=== PATIENT | female | born 1985 | race African-American/Black ===

== ENCOUNTER 2017-07-12 07:48 | Inpatient (IN) | payer BC ==
[2017-07-12] VITALS (11 sets, daily range): BP systolic 114–124; BP diastolic 65–71; PULSE 85–104; RESP 18–25; TEMP 98.1–100; O2SAT 96–100
[~2017-07-12] VITALS: Ht 167.6 cm; Wt 91.4 kg
[~2017-07-12 07:48] MED LIST: TRINTAB7 PO
[2017-07-12] MEDS ORDERED: PROCHLORPERAZINE 25 MG SUPP RECTAL PRN (08:30)
[2017-07-12] MEDS ORDERED: ZOLPIDEM TARTRATE 5 MG TAB PO PRN (08:30)
[2017-07-12] MEDS ORDERED: SODIUM CHLORIDE 0.9% FLUSH 10 ML FLUSH IV FLUSH PRN ×2 (08:30)
[2017-07-12] MEDS ORDERED: MAGNESIUM HYDROXIDE SUSP 30 ML CUP PO PRN (08:30)
[2017-07-12] MEDS ORDERED: LACTULOSE SYRUP 20 GM/30 ML CUP PO PRN (08:30)
[2017-07-12] MEDS ORDERED: BISACODYL 10 MG SUPP RECTAL PRN (08:30)
[2017-07-12] MEDS ORDERED: ONDANSETRON HCL 4 MG/2 ML VIAL IVP PRN (08:30)
[2017-07-12] MEDS ORDERED: ACETAMINOPHEN 325 MG TAB PO PRN ×2 (08:30)
[2017-07-12] MEDS ORDERED: NALOXONE HCL 0.4 MG/ML AMP IV PUSH PRN (08:30)
[2017-07-12] MEDS ORDERED: SENNOSIDES 8.6 MG TAB PO PRN (08:30)
[2017-07-12] MEDS ORDERED: HEPARIN-D5W 25,000 U/250 ML 250 ML IV PRN ×2 (08:30→11:00)
[2017-07-12] MEDS ORDERED: MORPHINE SULFATE 4 MG/ML INJ IV PUSH PRN ×3 (08:30)
[2017-07-12] MEDS: SODIUM CHLORIDE 0.9% FLUSH 10 ML FLUSH IV FLUSH SCH ×2 (09:00→21:00)
[2017-07-12] MEDS ORDERED: SODIUM CHLORIDE 0.9% FLUSH 10 ML FLUSH IV FLUSH SCH (09:00)
[2017-07-12] MEDS: DOCUSATE SODIUM 50 MG/SENNA 8.6 MG TAB PO SCH ×2 (09:00→21:00)
[2017-07-12] MEDS: HEPARIN-D5W 25,000 U/250 ML 250 ML IV PRN ×2 (11:00→21:33)
[2017-07-12] MEDS: SODIUM CHLOR 0.9% 1000 ML INJ 1,000 ML IV SCH ×2 (11:02→21:29)
[2017-07-12] MEDS: ACETAMINOPHEN/HYDROcodone 325 MG/5 MG TAB PO PRN ×3 (11:21→21:34)
--- NOTE | 2017-07-12 11:43 | RADRPT ---
EXAM DATE/TIME: 07/12/2017 10:57 [facility] COMPARISON: No previous studies available for comparison. INDICATIONS : Bilateral pulmonary embolism. MEDICAL HISTORY : Bilateral pulmonary embolism. SURGICAL HISTORY : section. ENCOUNTER: Initial ACUITY: 1 day PAIN SCORE: 0/10 LOCATION: Bilateral leg. TECHNIQUE: Venous ultrasound of the left and right leg was performed from the inguinal ligament to the proximal calf. Real-time, color Doppler and spectral tracing, compression and augmentation techniques were us ed. FINDINGS: RIGHT LEG: There is normal compressibility of the deep venous system from the inguinal region to the proximal ca lf. No echogenic clot is seen in the lumen of the common femoral, femoral, popliteal, and posterior tibial veins. There is a normal response of the venous system to proximal and distal augmentation an d respiration. LEFT LEG: Small focus of echogenic nonocclusive thrombus involving the popliteal vein. There is normal compress ibility of the deep venous system from the inguinal region to the proximal calf. No echogenic clot i s seen in the lumen of the common femoral, femoral, and posterior tibial veins. There is a normal re sponse of the venous system to proximal and distal augmentation and respiration. CONCLUSION: 1. Small volume thrombus involving the left popliteal vein which is nonocclusive. 2. No DVT involving the right leg. Torey Ortiz Jr., MD on July 12, 2017 at 11:38 Board Certified Radiologist. This report was verified electronically.
[2017-07-12 12:58] LABS: AUTOMATED NEUTROPHIL # 10.8 TH/MM3 (1.8-7.7); BASOPHIL % 0.3 % (0.0-2.0); EOSINOPHIL % 0.3 % (0.0-4.0); HEMATOCRIT 37.6 % (35.0-46.0); HEMO FLAGS DIFF FINAL; LYMPH % 12.3 % (9.0-44.0); LYMPHOCYTE # 1.6 TH/MM3 (1.0-4.8); MEAN CELL VOLUME 83.2 FL (80.0-100.0); MEAN CORPUSCULAR HEMOGLOBIN 27.4 PG (27.0-34.0); NEUT % 82.1 % (16.0-70.0); PLATELET COUNT 237 TH/MM3 (150-450); RED BLOOD COUNT 4.53 MIL/MM3 (4.00-5.30); RED CELL DISTRIBUTION WIDTH 13.4 % (11.6-17.2); WHITE BLOOD COUNT 13.2 TH/MM3 (4.0-11.0)
--- NOTE | 2017-07-12 13:16 | HHI.HP ---
[facility] Service [place] [facility] Primary Care Physician No Primary Care Physician Admission Diagnosis Diagnoses: (1) Pulmonary emboli Diagnosis: Principal (2) Dyspnea Diagnosis: Principal (3) SOB (shortness of breath) Diagnosis: Secondary (4) Chest pain Diagnosis: Principal Chief Complaint: CHEST PAIN Travel History International Travel<30 Days: No Contact w/Intl Traveler <30 Da: No Traveled to Known Affected Are: No History of Present Illness PATIENT IS A 31 YEAR OLD FEMALE WHO complains of right-sided chest pain and shortness of breath that began yesterday morning. She rates the pain 9 out of 10. Pain increases with inhaling, moving and walking. She describes the pain as a "pain". This is the first time she's had episode like this. She does not smoke. She denies any family history heart disease. She denies any personal history of DVT or PE. Patient is currently on oral contraceptive pills. Review of Systems Constitutional: COMPLAINS OF: Fatigue, DENIES: Diaphoretic episodes, Fever, Weight gain, Weight loss, Dizziness, Change in appetite Endocrine: DENIES: Abnorml menstrual pattern, Heat/cold intolerance Eyes: DENIES: Blurred vision, Diplopia, Eye inflammation Ears, nose, mouth, throat: DENIES: Tinnitus, Hearing loss, Vertigo, Nasal discharge Respiratory: COMPLAINS OF: Cough, Shortness of breath, DENIES: Apneas, Snoring , Wheezing, Hemoptysis Cardiovascular: COMPLAINS OF: Chest pain, DENIES: Palpitations, Syncope, Dyspnea on Exertion, PND Gastrointestinal: DENIES: Abdominal pain, Black stools, Bloody stools, Constipation Genitourinary: DENIES: Abnormal vaginal bleeding, Dysmenorrhea, Urgency, Hematuria Musculoskeletal: DENIES: Joint pain, Muscle aches, Stiffness Integumentary: DENIES: Abnormal pigmentation, Pruritus Hematologic/lymphatic: DENIES: Bruising, Lymphadenopathy Immunologic/allergic: DENIES: Eczema, Urticaria Neurologic: DENIES: Abnormal gait, Headache, Localized weakness, Paresthesias, Seizures, Speech Problems Psychiatric: DENIES: Anxiety, Confusion, Mood changes, Depression, Hallucinations Past Family Social History Past Medical History Past Surgical History Reported Medications Reported Meds & Active Scripts Active Reported Trinessa (Norgestimate-Ethinyl Estradiol) 0.18/0.215/0.25 mg-35 Mcg Tab 1 Tab PO DAILY Allergies: Coded Allergies: ibuprofen (Verified Allergy, Severe, Swelling, 07/12/17) Active Ordered Medications Current Medications Sodium Chloride 1,000 ml @ 75 mls/hr [id number] IV Last administered on 11:02; Start 07/12/17 at 08:17 Sodium Chloride (NS Flush) 2 ml UNSCH PRN IV FLUSH FLUSH AFTER USING IV ACCESS ; Start 07/12/17 at 08:30; Stop 07/12/17 at 10:07; Status DC Sodium Chloride (NS Flush) 2 ml BID IV FLUSH ; Start 07/12/17 at 09:00; Stop 07/12/17 at 10:07; Status DC Acetaminophen/ Hydrocodone Bitart ([place] 5-325 Mg) 1 tab Q4H PRN PO PAIN SCALE 1 TO 5; Start 07/12/17 at 08:30 Acetaminophen/ Hydrocodone Bitart ([place] 5-325 Mg) 2 tab Q4H PRN PO PAIN SCALE 6 TO 10 Last administered on 07/12/17 11:21; Start 07/12/17 at 08:30 Morphine Sulfate (Morphine Inj) 2 mg Q4H PRN IV PUSH BREAKTHROUGH PAIN; Start 07/12/17 at 08:30 Heparin Sodium (Porcine) (Heparin Inj) 5,000 units UNSCH PRN IV PUSH APTT LESS THAN 25; Start 07/12/17 at 14:30 Heparin Sodium (Porcine) (Heparin Inj) 2,500 units UNSCH PRN IV PUSH APTT 25 TO 39; Start 07/12/17 at 14:30 Heparin Sodium/ Dextrose 250 ml @ 0 mls/hr TITRATE PRN IV Coagulation Management; Start 07/12/17 at 08:30; Status UNV Sodium Chloride (NS Flush) 2 ml UNSCH PRN IV FLUSH FLUSH AFTER USING IV ACCESS ; Start 07/12/17 at 08:30 Sodium Chloride (NS Flush) 2 ml BID IV FLUSH Last administered on 07/12/17 09 :00; Start 07/12/17 at 09:00 Acetaminophen (Tylenol) 650 mg Q4H PRN PO TEMP > 100.4; Start 07/12/17 at 08: 30 Ondansetron HCl (Zofran Inj) 4 mg Q6H PRN IVP NAUSEA OR VOMITING; Start at 08:30 Prochlorperazine (Compazine Supp) 25 mg Q12H PRN RECTAL NAUSEA OR VOMITING; Start 07/12/17 at 08:30 Zolpidem Tartrate (Ambien) 5 mg HS PRN PO INSOMNIA; Start 07/12/17 at 08:30 Acetaminophen (Tylenol) 650 mg Q6H PRN PO PAIN SCALE 1 TO 2; Start 07/12/17 at 08:30; Stop 07/12/17 at 10:04; Status DC Morphine Sulfate (Morphine Inj) 2 mg Q3H PRN IV PUSH Pain 3-5; if unable to take PO; Start 07/12/17 at 08:30 Morphine Sulfate (Morphine Inj) 4 mg Q3H PRN IV PUSH Pain 6-10;if unable to take PO; Start 07/12/17 at 08:30 Naloxone HCl (Narcan Inj) 0.4 mg UNSCH PRN IV PUSH SEE LABEL COMMENTS; Start 07/12/17 at 08:30 Senna/Docusate Sodium (Megan-Colace) 1 tab BID PO ; Start 07/12/17 at 09:00 Magnesium Hydroxide (Milk Of Magnesia Liq) 30 ml Q12H PRN PO Mild constipation ; Start 07/12/17 at 08:30 Sennosides (Senokot) 17.2 mg Q12H PRN PO Moderate constipation; Start at 08:30 Bisacodyl (Dulcolax Supp) 10 mg DAILY PRN RECTAL SEVERE CONSITIPATION; Start 07/12/17 at 08:30 Lactulose (Lactulose Liq) 30 ml DAILY PRN PO SEVERE CONSITIPATION; Start 07/12 at 08:30 Heparin Sodium/ Dextrose 250 ml @ 16.38 mls/ hr UNSCH PRN IV COAGULATION MANAGEMENT; Start 07/12/17 at 11:00; Stop 07/12/17 at 11:00; Status DC Heparin Sodium/ Dextrose 250 ml @ 16.38 mls/ hr TITRATE PRN IV COAGULATION MANAGEMENT Last administered on 07/12/17t 11:00; Start 07/12/17 at 11:00 Family History DENIES MOTHER AND FATHER UNKNOWN Social History DENIES TOBACCO DENIES ILLICITS OCCASIONAL ALCOHOLIC BEVERAGE Physical Exam Vital Signs Vital Signs Date Time Temp Pulse Resp B/P (MAP) Pulse Ox O2 Delivery O2 Flow Rate FiO2 07/12/17 06:34 72 16 117/62 (80) 98 Room Air 07/12/17 04:57 2.00 07/12/17 04:43 98.1 Physical Exam GENERAL: This is a well-nourished, well-developed patient, in MILD distress. SOME CHEST PAIN SKIN: No rashes, ecchymoses or lesions. Cool and dry. HEAD: Atraumatic. Normocephalic. No temporal or scalp tenderness. EYES: Pupils equal round and reactive. Extraocular motions intact. No scleral icterus. No injection or drainage. ENT: Nose without bleeding, purulent drainage or septal hematoma. Throat without erythema, tonsillar hypertrophy or exudate. Uvula midline. Airway patent. NECK: Trachea midline. No JVD or lymphadenopathy. Supple, nontender, no meningeal signs. CARDIOVASCULAR: Regular rate and rhythm without murmurs, gallops, or rubs. S1, S2 NO S3 OR S4 RESPIRATORY: Clear to auscultation. Breath sounds equal bilaterally. No wheezes , rales, or rhonchi. GASTROINTESTINAL: Abdomen soft, non-tender, nondistended. No hepato-splenomegaly , or palpable masses. No guarding. MUSCULOSKELETAL: Extremities without clubbing, cyanosis, or edema. No joint tenderness, effusion, or edema noted. No calf tenderness. Negative Homans sign bilaterally. NEUROLOGICAL: Awake and alert. Cranial nerves II through XII intact. Motor and sensory grossly within normal limits. Five out of 5 muscle strength in all muscle groups. Normal speech. INSIGHT AND JUDGEMENT ARE GOOD MOOD AND BEHAVIOR ARE APPROPRIATE Laboratory Labs Laboratory Tests Test 07/12/17 04:45 White Blood Count 15.2 TH/MM3 Red Blood Count 4.37 MIL/MM3 Hemoglobin 12.3 GM/DL Hematocrit 36.0 % Mean Corpuscular Volume 82.4 FL Mean Corpuscular Hemoglobin 28.1 PG Mean Corpuscular Hemoglobin Concent 34.2 % Red Cell Distribution Width 12.9 % Platelet Count 227 TH/MM3 Mean Platelet Volume 10.3 FL Immature Granulocyte % (Auto) 0.3 % Neutrophils (%) (Auto) 73.0 % Lymphocytes (%) (Auto) 19.3 % Monocytes (%) (Auto) 5.5 % Eosinophils (%) (Auto) 1.7 % Basophils (%) (Auto) 0.2 % Immature Granulocyte # (Auto) 0.1 TH/MM3 Neutrophils # (Auto) 11.1 TH/MM3 Lymphocytes # (Auto) 2.9 TH/MM3 Monocytes # (Auto) 0.8 TH/MM3 Eosinophils # (Auto) 0.3 TH/MM3 Basophils # (Auto) 0.0 TH/MM3 CBC Comment DIFF FINAL Differential Comment Prothrombin Time 10.5 SEC Prothromb Time International Ratio 1.0 RATIO Activated Partial Thromboplast Time 28.8 SEC D-Dimer Quantitative (PE/DVT) 1.82 MG/L FEU Blood Urea Nitrogen 6 MG/DL Creatinine 0.90 MG/DL Random Glucose 119 MG/DL Calcium Level 8.5 MG/DL Magnesium Level 2.1 MG/DL Sodium Level 141 MEQ/L Potassium Level 3.7 MEQ/L Chloride Level 108 MEQ/L Carbon Dioxide Level 25.0 MEQ/L Anion Gap 8 MEQ/L Estimat Glomerular Filtration Rate 88 ML/MIN Total Creatine Kinase 93 U/L Troponin I LESS THAN 0.02 NG/ML Human Chorionic Gonadotropin, Quant LESS THAN 1 MIU/ML Imaging Last Impressions Lower Extremity Ultrasound 07/12/17 0000 Signed Impressions: Service Date/Time: Wednesday, July 12, 2017 10:57 - CONCLUSION: 1. Small volume thrombus involving the left popliteal vein which is nonocclusive. 2. No DVT involving the right leg. Torey Ortiz Jr., MD ----- CT Pulmonary Angiogram Signed EXAM DATE/TIME: 07/12/2017 05:52 [facility] COMPARISON: No previous studies available for comparison. INDICATIONS : Right sided chest pain; evaluate for pulmonary embolism. IV CONTRAST: 60 cc Omnipaque 350 (iohexol) IV RADIATION DOSE: 14.76 CTDIvol (mGy) MEDICAL HISTORY : None SURGICAL HISTORY : None. ENCOUNTER: Initial ACUITY: 1 day PAIN SCALE: 9/10 LOCATION: Right chest TECHNIQUE: Volumetric scanning of the chest was performed using a pulmonary embolism protocol MIP images were reconstructed. Using automated exposure control and adjustment of the mA and/or kV according to patient size, radiation dose was kept as low as reasonably achievable to obtain optimal diagnostic quality images. DICOM format image data is available electronically for review and comparison. Follow-up recommendations for detected pulmonary nodules are based at a minimum on nodule size and patient risk factors according to Fleischner Society Guidelines. FINDINGS: PULMONARY ARTERIES: There is a large low density thrombus in the right intralobar pulmonary artery supplying a significant amount of the right lower lobe. There is a small filling defect in the left lower lobe pulmonary artery. LUNGS: There is a large infiltrate in the right lower lobe. There is no pneumothorax . No concerning pulmonary nodule is visualized. PLEURAE: There is no pleural thickening or pleural effusion. MEDIASTINUM: There is good visualization of the great vessels of the middle mediastinum. No evidence of mediastinal or hilar adenopathy/mass. MUSCULOSKELETAL: Within normal limits for patient age. MISCELLANEOUS: The visualized upper abdominal organs demonstrate no acute abnormality. CONCLUSION: Large embolus in the right lower lobe and intralobar pulmonary artery. Significant infiltrate in the right lower lobe. Tiny embolus in the left lower lobe pulmonary artery Chest, Single AP Signed EXAM DATE/TIME: 07/12/2017 05:25 [facility] COMPARISON: No previous studies available for comparison. INDICATIONS : Right sided chest pain with shortness of breath. MEDICAL HISTORY : None. SURGICAL HISTORY : None. ENCOUNTER: Initial ACUITY: 1 day PAIN SCORE: 9/10 LOCATION: Right chest FINDINGS: A single view of the chest demonstrates the lungs to be symmetrically aerated without evidence of mass, ior effusion. There is a small infiltrate in the lateral aspect of the right lower or middle lobes The cardiomediastinal contours are unremarkable. Osseous structures are intact. CONCLUSION: Airspace disease the right lower lobe laterally could be small area of pneumonia. Caprini VTE Risk Assessment Caprini VTE Risk Assessment: Mod/High Risk (score >= 2) Caprini Risk Assessment Model Point Value = 1 Point Value = 2 Point Value = 3 Point Value = 5 Age 41-60 Minor surgery BMI > 25 kg/m2 Swollen legs Varicose veins or History of unexplained or recurrent spontaneous Oral contraceptives or hormone replacement Sepsis (< 1 month) Serious lung disease, including pneumonia (< 1 month) Abnormal pulmonary function Acute myocardial infarction Congestive heart failure (< 1 month) History of inflammatory bowel disease Medical patient at bed rest Age 61-74 Arthroscopic surgery Major open surgery (> 45 min) Laparoscopic surgery (> 45 min) Malignancy Confined to bed (> 72 hours) Immobilizing plaster cast Central venous access Age >= 75 History of VTE Family history of VTE Factor V Leiden Prothrombin [id number] Lupus anticoagulant Anticardiolipin antibodies Elevated serum homocysteine Heparin-induced thrombocytopenia Other congenital or acquired thrombophilia Stroke (< 1 month) Elective arthroplasty Hip, pelvis, or leg fracture Acute spinal cord injury (< 1 month) Prophylaxis Regimen Total Risk Factor Score Risk Level Prophylaxis Regimen 0-1 Low Early ambulation 2 Moderate Order ONE of the following: *Sequential Compression Device (SCD) *Heparin 5000 units SQ BID 3-4 Higher Order ONE of the following medications: *Heparin 5000 units SQ TID *Enoxaparin/Lovenox 40 mg SQ daily (WT < 150 kg, CrCl > 30 mL/min) *Enoxaparin/Lovenox 30 mg SQ daily (WT < 150 kg, CrCl > 10-29 mL/min) *Enoxaparin/Lovenox 30 mg SQ BID (WT < 150 kg, CrCl > 30 mL/min) AND/OR *Sequential Compression Device (SCD) 5 or more Highest Order ONE of the following medications: *Heparin 5000 units SQ TID (Preferred with Epidurals) *Enoxaparin/Lovenox 40 mg SQ daily (WT < 150 kg, CrCl > 30 mL/min) *Enoxaparin/Lovenox 30 mg SQ daily (WT < 150 kg, CrCl > 10-29 mL/min) *Enoxaparin/Lovenox 30 mg SQ BID (WT < 150 kg, CrCl > 30 mL/min) AND *Sequential Compression Device (SCD) Assessment and Plan Problem List: (1) Dyspnea ICD Code: R06.00 - Dyspnea, unspecified (2) SOB (shortness of breath) ICD Code: R06.02 - Shortness of breath (3) Chest pain ICD Code: R07.9 - Chest pain, unspecified (4) Pulmonary emboli ICD Code: I26.99 - Other pulmonary embolism without acute cor pulmonale Assessment and Plan MULTIPLE PULMONARY EMBOLI BL- CONTINUE ON HEPARIN DRIP HOPEFULLY TRANSITION TO XARELTO OR ELIQUIS TOMORROW IF ECHO IS STABLE AND CHEST PAIN DECREASES HAS DVT IN LEFT LE-MAY BE SOURCE OF PE RULE OUT HYPERCOAGULABLE STATE LABS DRAWN- CONSULT HEMATOLOGY CHRONIC CONTROL PILL- WILL STOP PAIN CONTROL NEEDED FOR PE AND CHEST PAIN SOB- CONTINUE HEPARIN DRIP CHEST PAIN, ECHO AND TREND TROPONINS GI PROPHYLAXIS WITH H2 LINDY DW RN AND PT Code Status FULL CODE Discussed Condition With ER AND RN AND PT AND Physician Certification 2 Midnight Certification Type: Admission for Inpatient Services Order for Inpatient Services The services are ordered in accordance with Medicare regulations or non- Medicare payer requirements, as applicable. In the case of services not specified as inpatient-only, they are appropriately provided as inpatient services in accordance with the 2-midnight benchmark. Estimated LOS (days): 3 3 days is the estimated time the patient will need to remain in the hospital, assuming treatment plan goals are met and no additional complications. Post-Hospital Plan: Home Gm Monzon DO Jul 12, 2017 13:16
[2017-07-12 13:19] LABS: APTT (PATIENT) 58.7 SEC (24.3-30.1); PROTHROMBIN TIME - PATIENT 11.4 SEC (9.8-11.6)
[2017-07-12 13:27] LABS: CREATINE KINASE 75 U/L (26-192)
[2017-07-12] MEDS ORDERED: CHLORHEXIDINE GLUCONATE 2 % 1 PACK (2 CLOTHS)(extra cloths) TOPICAL PRN (14:15)
[2017-07-12] MEDS ORDERED: HEPARIN SODIUM - IV 10,000 UNITS/10 ML VIAL IV PUSH PRN (14:30)
[2017-07-12] MEDS ORDERED: HEPARIN - 10,000 UNITS/ML IV ADDITIVE IV PUSH PRN (14:30)
[2017-07-12 17:08] LABS: APTT (PATIENT) 51.3 SEC (24.3-30.1)
--- NOTE | 2017-07-12 18:39 | MB ---
cc: JOHN RANGEL M.D. DATE OF CONSULTATION 07/12/[address] Monzon REASON FOR CONSULTATION Hematology consulted to render opinion regarding a patient with newly diagnosed acute pulmonary embolism. HISTORY OF THE PRESENT ILLNESS The patient is a very pleasant 31-year-old female with no significant past medical history, woke up this morning with acute right chest pain that describes as very sharp pain. She also has shortness of breath. She thought the pain was worse with deep breathing and movement. She started oral contraceptive pills about six months ago. She has two aunts with history of blood clots. One aunt had a blood clot after childbirth and another one had a blood clot after a long trip. She denies any constitutional symptoms. She has no cough. Denies any nausea, vomiting, diarrhea or abdominal pain, any dysuria, hematuria. She has been active. Denies any trauma to the lower extremities. PAST MEDICAL HISTORY No hypertension, coronary artery disease or diabetes. PAST SURGICAL HISTORY section times one. FAMILY HISTORY Two maternal aunts had blood clots as above. She had a brother and three children all healthy. SOCIAL HISTORY Denies tobacco. She drinks occasionally. ALLERGIES IBUPROFEN. MEDICATIONS Oral contraceptive pills. REVIEW OF SYSTEMS CONSTITUTIONAL: As above. EYES: Negative. EAR, NOSE, AND THROAT: Negative. CARDIOVASCULAR: As above. RESPIRATORY: As above. GASTROINTESTINAL: Negative. GENITOURINARY: Negative. MUSCULOSKELETAL: Negative. HEMATOLOGIC: As above. ENDOCRINE: Negative. DERMATOLOGIC: Negative. PSYCHIATRIC: Negative. NEUROLOGICAL: Negative. PHYSICAL EXAMINATION VITAL SIGNS: Temperature 98.3, blood pressure 114/65, O2 saturation 97% on room air. GENERAL: She is alert and oriented times three, in no acute distress. She is a little overweight. HEENT: Atraumatic, normocephalic. Pupils equal, round and reactive to light. Extraocular muscles intact. No scleral icterus. Oropharynx dry mucosa, no lesion, no thrush, no mucositis. NECK: No thyromegaly, no palpable mass. LYMPHATICS: No palpable cervical, clavicular, axillary or inguinal lymph nodes. CARDIOVASCULAR: Regular S1, S2. No murmur. LUNGS: Clear to auscultation bilaterally. No wheezing or rhonchi. ABDOMEN: Soft, nontender. I could not palpate liver or spleen. EXTREMITIES: No clubbing, cyanosis or edema. BACK: No paravertebral tenderness. SKIN: No rash or petechiae. NEUROLOGIC: Nonfocal. LABORATORY DATA Reviewed. ASSESSMENT Acute left lower extremity deep venous thrombosis with pulmonary embolism. She likely has a hypercoagulable state exacerbated with oral contraceptive pills. She presented with chest pain and CT angiogram showed a large pulmonary embolism in the right lower lobe, intralobar pulmonary artery with small pulmonary embolism in the left lower lobe pulmonary artery and also infiltrate in the right lower lobe which is likely due to the pulmonary embolism. Ultrasound showed a small nonocclusive clot in the left popliteal vein. She had two maternal aunts with history of blood clots, one triggered by a and one had a blood clot after a long flight. The patient started oral contraceptive pills six months ago. She is hemodynamically stable. She has good O2 saturation on room air. However, she is still a little tachycardic. I will start her on oxygen supplement. The hypercoagulable panel has been ordered and the results may take two weeks to complete. She is currently on heparin and tolerating it well. I had an extensive discussion with the patient and her family. I told her if her hypercoagulable panel is unremarkable, I will recommend that she stay on anticoagulation for six months. However, if she has significant abnormality in the hypercoagulable panel, then she may need retirement anticoagulation. Once she is stable she could be bridged to one of the new oral anticoagulation like Eliquis or Pradaxa. They had many questions today which were answered. RECOMMENDATIONS 1. Continue heparin and can bridge to an oral anticoagulant tomorrow if she is stable. 2. Hypercoagulable panel is pending. 3. Duration of anticoagulation will depend on the results of hypercoagulable workup. Thank you Dr. Monzon for asking me to see this patient. MD BOWEN Resendiz/FAREED /6:04 PM /6:13 PM ASIYA
[2017-07-13] VITALS (12 sets, daily range): BP systolic 116–127; BP diastolic 63–75; PULSE 80–110; RESP 18–25; TEMP 98.7–100.1; O2SAT 94–99
[2017-07-13] MEDS: ACETAMINOPHEN/HYDROcodone 325 MG/5 MG TAB PO PRN ×3 (01:18→17:12)
[2017-07-13 07:15] LABS: APTT (PATIENT) 51.4 SEC (24.3-30.1)
[2017-07-13 07:22] LABS: HEMATOCRIT 35.4 % (35.0-46.0); HEMO FLAGS DIFF FINAL; LYMPH % 13.5 % (9.0-44.0); MEAN CORPUSCULAR HEMOGLOBIN 27.8 PG (27.0-34.0); MEAN CORPUSCULAR HGB CONC 33.1 % (32.0-36.0); NEUT % 76.4 % (16.0-70.0); PLATELET COUNT 216 TH/MM3 (150-450); RED BLOOD COUNT 4.21 MIL/MM3 (4.00-5.30); RED CELL DISTRIBUTION WIDTH 13.6 % (11.6-17.2); WHITE BLOOD COUNT 13.6 TH/MM3 (4.0-11.0)
[2017-07-13 07:23] LABS: AUTOMATED NEUTROPHIL # 10.4 TH/MM3 (1.8-7.7); BASOPHIL % 0.2 % (0.0-2.0); EOSINOPHIL # 0.1 TH/MM3 (0-0.4); EOSINOPHIL % 0.6 % (0.0-4.0); LYMPHOCYTE # 1.8 TH/MM3 (1.0-4.8); MONO % 9.3 % (0.0-8.0)
[2017-07-13 07:30] LABS: ANION GAP 6 MEQ/L (5-15); AST (GOT) 5 U/L (15-37); BICARBONATE 27.6 MEQ/L (21.0-32.0); BLOOD UREA NITROGEN 6 MG/DL (7-18); CHLORIDE 105 MEQ/L (98-107); GLOMERULAR FILTRATION RATE 94 ML/MIN (>89); MAGNESIUM 2.2 MG/DL (1.5-2.5); POTASSIUM 3.7 MEQ/L (3.5-5.1); SODIUM (NA) 139 MEQ/L (136-145)
[2017-07-13 07:40] LABS: ALKALINE PHOSPHATASE 112 U/L (45-117); ALT (GPT) 13 U/L (10-53); FREE T4 1.63 NG/DL (0.76-1.46); TOTAL BILIRUBIN ADULT 0.5 MG/DL (0.2-1.0)
[2017-07-13 07:43] LABS: CREATINE KINASE 55 U/L (26-192)
--- NOTE | 2017-07-13 08:16 | PD.ONC.PN ---
Subjective Subjective Remarks CP slightly better. SOB improved. No bleeding. Objective Data Date Time Temp Pulse Resp B/P (MAP) Pulse Ox O2 Delivery O2 Flow Rate FiO2 07/13/17 04:00 80 07/13/17 04:00 99.2 80 18 122/68 (86) 99 07/13/17 02:00 81 07/13/17 00:00 84 07/13/17 00:00 99.7 84 18 122/68 (86) 99 07/12/17 22:00 96 07/12/17 20:00 94 07/12/17 20:00 100.0 85 18 119/69 (86) 98 07/12/17 19:04 99 Nasal Cannula 2.00 07/12/17 16:24 97 21 07/12/17 16:00 98.3 95 25 114/65 (81) 96 07/12/17 15:00 94 07/12/17 14:00 100 07/12/17 13:00 104 07/12/17 12:00 91 07/12/17 12:00 98.1 91 23 118/69 (85) 100 07/12/17 11:00 103 07/12/17 10:00 100 07/12/17 10:00 98.1 100 21 124/71 (88) 100 07/13/17 07/13/17 07/13/17 07:00 15:00 23:00 Intake Total 480 ml Output Total 1100 ml Balance -620 ml Result Diagram: 07/13/17 0625 07/13/17 0625 Laboratory Results Laboratory Tests Test 07/12/17 11:00 07/12/17 12:00 07/12/17 12:30 07/12/17 16:13 Nasal Screen MRSA (PCR) MRSA NOT DETECTED White Blood Count 13.2 TH/MM3 Red Blood Count 4.53 MIL/MM3 Hemoglobin 12.4 GM/DL Hematocrit 37.6 % Mean Corpuscular Volume 83.2 FL Mean Corpuscular Hemoglobin 27.4 PG Mean Corpuscular Hemoglobin Concent 33.0 % Red Cell Distribution Width 13.4 % Platelet Count 237 TH/MM3 Mean Platelet Volume 8.7 FL Neutrophils (%) (Auto) 82.1 % Lymphocytes (%) (Auto) 12.3 % Monocytes (%) (Auto) 5.0 % Eosinophils (%) (Auto) 0.3 % Basophils (%) (Auto) 0.3 % Neutrophils # (Auto) 10.8 TH/MM3 Lymphocytes # (Auto) 1.6 TH/MM3 Monocytes # (Auto) 0.7 TH/MM3 Eosinophils # (Auto) 0.0 TH/MM3 Basophils # (Auto) 0.0 TH/MM3 CBC Comment DIFF FINAL Differential Comment Prothrombin Time 11.4 SEC Prothromb Time International Ratio 1.0 RATIO Activated Partial Thromboplast Time 58.7 SEC 51.3 SEC Total Creatine Kinase 75 U/L Troponin I LESS THAN 0.02 NG/ML Test 07/13/17 06:25 White Blood Count 13.6 TH/MM3 Red Blood Count 4.21 MIL/MM3 Hemoglobin 11.7 GM/DL Hematocrit 35.4 % Mean Corpuscular Volume 84.0 FL Mean Corpuscular Hemoglobin 27.8 PG Mean Corpuscular Hemoglobin Concent 33.1 % Red Cell Distribution Width 13.6 % Platelet Count 216 TH/MM3 Mean Platelet Volume 8.7 FL Neutrophils (%) (Auto) 76.4 % Lymphocytes (%) (Auto) 13.5 % Monocytes (%) (Auto) 9.3 % Eosinophils (%) (Auto) 0.6 % Basophils (%) (Auto) 0.2 % Neutrophils # (Auto) 10.4 TH/MM3 Lymphocytes # (Auto) 1.8 TH/MM3 Monocytes # (Auto) 1.3 TH/MM3 Eosinophils # (Auto) 0.1 TH/MM3 Basophils # (Auto) 0.0 TH/MM3 CBC Comment DIFF FINAL Differential Comment Activated Partial Thromboplast Time 51.4 SEC Blood Urea Nitrogen 6 MG/DL Creatinine 0.85 MG/DL Random Glucose 94 MG/DL Total Protein 7.8 GM/DL Albumin 2.7 GM/DL Calcium Level 8.4 MG/DL Phosphorus Level 2.4 MG/DL Magnesium Level 2.2 MG/DL Alkaline Phosphatase 112 U/L Aspartate Amino Transf (AST/SGOT) 5 U/L Alanine Aminotransferase (ALT/SGPT) 13 U/L Total Bilirubin 0.5 MG/DL Sodium Level 139 MEQ/L Potassium Level 3.7 MEQ/L Chloride Level 105 MEQ/L Carbon Dioxide Level 27.6 MEQ/L Anion Gap 6 MEQ/L Estimat Glomerular Filtration Rate 94 ML/MIN Total Creatine Kinase 55 U/L Troponin I LESS THAN 0.02 NG/ML Free Thyroxine 1.63 NG/DL Thyroid Stimulating Hormone 3rd Gen 1.440 uIU/ML Administered Medications Medications (Trade) Dose Ordered Sig/Eric Route PRN Reason Start Time Stop Time Status Last Admin Dose Admin Sodium Chloride 1,000 ml @ 75 mls/hr [id number] IV 07/12/17 08:17 07/12/17 21:29 Acetaminophen/ Hydrocodone Bitart ([place] 5-325 Mg) 1 tab Q4H PRN PO PAIN SCALE 1 TO 5 07/12/17 08:30 07/12/17 16:57 Acetaminophen/ Hydrocodone Bitart ([place] 5-325 Mg) 2 tab Q4H PRN PO PAIN SCALE 6 TO 10 07/12/17 08:30 07/13/17 01:18 Sodium Chloride (NS Flush) 2 ml BID IV FLUSH 07/12/17 09:00 07/12/17 09:00 Heparin Sodium/ Dextrose 250 ml @ 16.38 mls/ hr TITRATE PRN IV COAGULATION MANAGEMENT 07/12/17 11:00 07/12/17 21:33 Objective Remarks GENERAL: Well-nourished, well-developed patient. SKIN: Warm and dry. HEAD: Normocephalic. EYES: No scleral icterus. No injection or drainage. NECK: Supple, trachea midline. No JVD or lymphadenopathy. LYMPHATIC: No adenopathy. CARDIOVASCULAR: Regular rate and rhythm without murmurs. RESPIRATORY: Breath sounds equal bilaterally. No accessory muscle use. GASTROINTESTINAL: Abdomen soft, non-tender, nondistended. EXTREMITIES: No cyanosis, or edema. MUSCULOSKELETAL: Adequate muscle tone. NEUROLOGICAL: No obvious focal deficit. Awake, alert, and oriented x3. PSYCHIATRIC: Appropriate mood and affect; insight and judgment normal. Assessment/Plan Assessment 1. Acute left lower extremity deep venous thrombosis with pulmonary embolism. She likely has a hypercoagulable state exacerbated with oral contraceptive pills. She presented with chest pain and CT angiogram showed a large pulmonary embolism in the right lower lobe, intralobar pulmonary artery with small pulmonary embolism in the left lower lobe pulmonary artery and also infiltrate in the right lower lobe which is likely due to the pulmonary embolism. Ultrasound showed a small nonocclusive clot in the left popliteal vein. She had two maternal aunts with history of blood clots, one triggered by a and one had a blood clot after a long flight. The patient started oral contraceptive pills six months ago and likely triggered the clots. Plan Plan: 1. Continue heparin and can bridge to an oral anticoagulant like pradaxa or eliquis when she is stable and if echo does not show right heart strain. 2. Hypercoagulable panel is pending. 3. Duration of anticoagulation will depend on the results of hypercoagulable workup. 4. Await echo. Migel Alcocer MD Jul 13, 2017 08:15
[2017-07-13] MEDS: DOCUSATE SODIUM 50 MG/SENNA 8.6 MG TAB PO SCH ×2 (09:00→19:31)
[2017-07-13] MEDS ORDERED: guaiFENesin/DEXTROMETHORPHAN 200 MG/20 MG/10 ML CUP PO PRN (11:15)
[2017-07-13] MEDS ORDERED: SODIUM CHLORIDE 0.9% FLUSH 10 ML FLUSH IV FLUSH PRN (11:15)
[2017-07-13] MEDS ORDERED: ACETAMINOPHEN 325 MG TAB PO PRN (11:15)
[2017-07-13] MEDS ORDERED: RESP: ALBUTEROL 2.5 MG/IPRATROPIUM 0.5 MG NEB (PRN) INH (11:15)
--- NOTE | 2017-07-13 11:54 | HHI.PR ---
Subjective Remarks PATIENT IS A 31 YEAR OLD FEMALE WHO complains of right-sided chest pain and shortness of breath that began yesterday morning. She rates the pain 9 out of 10. Pain increases with inhaling, moving and walking. She describes the pain as a "pain". This is the first time she's had episode like this. She does not smoke. She denies any family history heart disease. She denies any personal history of DVT or PE. Patient is currently on oral contraceptive pills. 07-[address] RANGEL of hematology oncology Remains on heparin drip Had some fevers last night Continue on Zithromax and Rocephin for CAP Add Mucinex Neb treatments Discussed with patient and RN Objective Vitals Vital Signs Date Time Temp Pulse Resp B/P (MAP) Pulse Ox O2 Delivery O2 Flow Rate FiO2 07/13/17 10:12 Nasal Cannula 2.00 07/13/17 04:00 80 07/13/17 04:00 99.2 80 18 122/68 (86) 99 07/13/17 02:00 81 07/13/17 00:00 84 07/13/17 00:00 99.7 84 18 122/68 (86) 99 07/12/17 22:00 96 07/12/17 20:00 94 07/12/17 20:00 100.0 85 18 119/69 (86) 98 07/12/17 19:04 99 Nasal Cannula 2.00 07/12/17 16:24 97 21 07/12/17 16:00 98.3 95 25 114/65 (81) 96 07/12/17 15:00 94 07/12/17 14:00 100 07/12/17 13:00 104 07/12/17 12:00 91 07/12/17 12:00 98.1 91 23 118/69 (85) 100 I/O 07/12/17 07/12/17 07/12/17 07/13/17 07/13/17 07/13/17 07:00 15:00 23:00 07:00 15:00 23:00 Intake Total 1285 ml 480 ml Output Total 100 ml 1100 ml Balance 1185 ml -620 ml Intake Oral 350 ml 480 ml IV Total 935 ml Output Urine Total 100 ml 1100 ml Result Diagram: 07/13/1762407/13/17624 Other Results Laboratory Tests Test 07/12/17 11:00 07/12/17 12:00 07/12/17 12:30 07/12/17 16:13 Nasal Screen MRSA (PCR) MRSA NOT DETECTED White Blood Count 13.2 TH/MM3 Red Blood Count 4.53 MIL/MM3 Hemoglobin 12.4 GM/DL Hematocrit 37.6 % Mean Corpuscular Volume 83.2 FL Mean Corpuscular Hemoglobin 27.4 PG Mean Corpuscular Hemoglobin Concent 33.0 % Red Cell Distribution Width 13.4 % Platelet Count 237 TH/MM3 Mean Platelet Volume 8.7 FL Neutrophils (%) (Auto) 82.1 % Lymphocytes (%) (Auto) 12.3 % Monocytes (%) (Auto) 5.0 % Eosinophils (%) (Auto) 0.3 % Basophils (%) (Auto) 0.3 % Neutrophils # (Auto) 10.8 TH/MM3 Lymphocytes # (Auto) 1.6 TH/MM3 Monocytes # (Auto) 0.7 TH/MM3 Eosinophils # (Auto) 0.0 TH/MM3 Basophils # (Auto) 0.0 TH/MM3 CBC Comment DIFF FINAL Differential Comment Prothrombin Time 11.4 SEC Prothromb Time International Ratio 1.0 RATIO Activated Partial Thromboplast Time 58.7 SEC 51.3 SEC Total Creatine Kinase 75 U/L Troponin I LESS THAN 0.02 NG/ML Test 07/13/17 06:25 White Blood Count 13.6 TH/MM3 Red Blood Count 4.21 MIL/MM3 Hemoglobin 11.7 GM/DL Hematocrit 35.4 % Mean Corpuscular Volume 84.0 FL Mean Corpuscular Hemoglobin 27.8 PG Mean Corpuscular Hemoglobin Concent 33.1 % Red Cell Distribution Width 13.6 % Platelet Count 216 TH/MM3 Mean Platelet Volume 8.7 FL Neutrophils (%) (Auto) 76.4 % Lymphocytes (%) (Auto) 13.5 % Monocytes (%) (Auto) 9.3 % Eosinophils (%) (Auto) 0.6 % Basophils (%) (Auto) 0.2 % Neutrophils # (Auto) 10.4 TH/MM3 Lymphocytes # (Auto) 1.8 TH/MM3 Monocytes # (Auto) 1.3 TH/MM3 Eosinophils # (Auto) 0.1 TH/MM3 Basophils # (Auto) 0.0 TH/MM3 CBC Comment DIFF FINAL Differential Comment Activated Partial Thromboplast Time 51.4 SEC Blood Urea Nitrogen 6 MG/DL Creatinine 0.85 MG/DL Random Glucose 94 MG/DL Total Protein 7.8 GM/DL Albumin 2.7 GM/DL Calcium Level 8.4 MG/DL Phosphorus Level 2.4 MG/DL Magnesium Level 2.2 MG/DL Alkaline Phosphatase 112 U/L Aspartate Amino Transf (AST/SGOT) 5 U/L Alanine Aminotransferase (ALT/SGPT) 13 U/L Total Bilirubin 0.5 MG/DL Sodium Level 139 MEQ/L Potassium Level 3.7 MEQ/L Chloride Level 105 MEQ/L Carbon Dioxide Level 27.6 MEQ/L Anion Gap 6 MEQ/L Estimat Glomerular Filtration Rate 94 ML/MIN Total Creatine Kinase 55 U/L Troponin I LESS THAN 0.02 NG/ML Free Thyroxine 1.63 NG/DL Thyroid Stimulating Hormone 3rd Gen 1.440 uIU/ML Imaging Last Impressions Lower Extremity Ultrasound 07/12/17 0000 Signed Impressions: Service Date/Time: Wednesday, July 12, 2017 10:57 - CONCLUSION: 1. Small volume thrombus involving the left popliteal vein which is nonocclusive. 2. No DVT involving the right leg. Torey Ortiz Jr., MD Objective Remarks GENERAL: Awake alert oriented 3-- talkative and cooperative SKIN: Warm and dry. HEAD: Atraumatic. Normocephalic. EYES: Pupils equal and round. No scleral icterus. No injection or drainage. Extraocular muscles intact ENT: No nasal bleeding or discharge. Mucous membranes pink and moist. Tongue is midline NECK: Trachea midline. No JVD. Neck is supple S1-S2 no S3 or S4 CARDIOVASCULAR: Regular rate and rhythm. RESPIRATORY: No accessory muscle use. Clear to auscultation. Breath sounds equal bilaterally. GASTROINTESTINAL: Abdomen soft, non-tender, nondistended. Hepatic and splenic margins not palpable. MUSCULOSKELETAL: Extremities without clubbing, cyanosis, or edema. No obvious deformities. NEUROLOGICAL: Awake and alert. No obvious cranial nerve deficits. Motor grossly within normal limits. Five out of 5 muscle strength in the arms and legs. Normal speech. PSYCHIATRIC: Appropriate mood and affect; insight and judgment normal. Medications and IVs Current Medications Medications (Trade) Dose Ordered Sig/Eric Route PRN Reason Start Time Stop Time Status Last Admin Dose Admin Sodium Chloride 1,000 ml @ 75 mls/hr [id number] IV 07/12/17 08:17 07/12/17 21:29 Acetaminophen/ Hydrocodone Bitart ([place] 5-325 Mg) 1 tab Q4H PRN PO PAIN SCALE 1 TO 5 07/12/17 08:30 07/13/17 08:45 Acetaminophen/ Hydrocodone Bitart ([place] 5-325 Mg) 2 tab Q4H PRN PO PAIN SCALE 6 TO 10 07/12/17 08:30 07/13/17 01:18 Morphine Sulfate (Morphine Inj) 2 mg Q4H PRN IV PUSH BREAKTHROUGH PAIN 07/12/17 08:30 Heparin Sodium (Porcine) (Heparin Inj) 5,000 units UNSCH PRN IV PUSH APTT LESS THAN 25 07/12/17 14:30 Heparin Sodium (Porcine) (Heparin Inj) 2,500 units UNSCH PRN IV PUSH APTT 25 TO 39 07/12/17 14:30 Sodium Chloride (NS Flush) 2 ml UNSCH PRN IV FLUSH FLUSH AFTER USING IV ACCESS 07/12/17 08:30 Sodium Chloride (NS Flush) 2 ml BID IV FLUSH 07/12/17 09:00 07/12/17 09:00 Acetaminophen (Tylenol) 650 mg Q4H PRN PO TEMP > 100.4 07/12/17 08:30 Ondansetron HCl (Zofran Inj) 4 mg Q6H PRN IVP NAUSEA OR VOMITING 07/12/17 08:30 Prochlorperazine (Compazine Supp) 25 mg Q12H PRN RECTAL NAUSEA OR VOMITING 07/12/17 08:30 Zolpidem Tartrate (Ambien) 5 mg HS PRN PO INSOMNIA 07/12/17 08:30 Morphine Sulfate (Morphine Inj) 2 mg Q3H PRN IV PUSH Pain 3-5; if unable to take PO 07/12/17 08:30 Morphine Sulfate (Morphine Inj) 4 mg Q3H PRN IV PUSH Pain 6-10;if unable to take PO 07/12/17 08:30 Naloxone HCl (Narcan Inj) 0.4 mg UNSCH PRN IV PUSH SEE LABEL COMMENTS 07/12/17 08:30 Senna/Docusate Sodium (Megan-Colace) 1 tab BID PO 07/12/17 09:00 Magnesium Hydroxide (Milk Of Magnesia Liq) 30 ml Q12H PRN PO Mild constipation 07/12/17 08:30 Sennosides (Senokot) 17.2 mg Q12H PRN PO Moderate constipation 07/12/17 08:30 Bisacodyl (Dulcolax Supp) 10 mg DAILY PRN RECTAL SEVERE CONSITIPATION 07/12/17 08:30 Lactulose (Lactulose Liq) 30 ml DAILY PRN PO SEVERE CONSITIPATION 07/12/17 08:30 Heparin Sodium/ Dextrose 250 ml @ 16.38 mls/ hr TITRATE PRN IV COAGULATION MANAGEMENT 07/12/17 11:00 07/12/17 21:33 Miscellaneous Information Patient in critical care unit? Ass... [id number] .XX 07/12/17 14:15 Chlorhexidine Gluconate (Chlorhexidine 2% Cloth) 3 pack DAILY@04 TOPICAL 07/13/17 04:00 07/17/17 04:01 Chlorhexidine Gluconate (Chlorhexidine 2% Cloth) 3 pack UNSCH PRN TOPICAL HYGIENIC CARE 07/12/17 14:15 07/17/17 14:07 Sodium Chloride (NS Flush) 2 ml UNSCH PRN IV FLUSH FLUSH AFTER USING IV ACCESS 07/13/17 11:15 Sodium Chloride (NS Flush) 2 ml BID IV FLUSH 07/13/17 21:00 Ceftriaxone Sodium 1000 mg/ Sodium Chloride 100 ml @ 200 mls/hr Q24H IV 07/13/17 12:00 Azithromycin (Zithromax) 500 mg DAILY PO 07/13/17 11:15 Acetaminophen (Tylenol) 650 mg Q4H PRN PO TEMPERATURE > 101 F 07/13/17 11:15 Albuterol/ Ipratropium (Duoneb Neb) 1 ampule Q4HR NEB PRN INH SHORTNESS OF BREATH 07/13/17 11:15 Guaifenesin/ Dextromethorphan (Robitussin Dm 200-20 Mg/10 ml Liq) 10 ml Q4H PRN PO COUGH 07/13/17 11:15 A/P Problem List: (1) Dyspnea ICD Code: R06.00 - Dyspnea, unspecified (2) SOB (shortness of breath) ICD Code: R06.02 - Shortness of breath (3) Chest pain ICD Code: R07.9 - Chest pain, unspecified (4) Pulmonary emboli ICD Code: I26.99 - Other pulmonary embolism without acute cor pulmonale Assessment and Plan MULTIPLE PULMONARY EMBOLI BL- CONTINUE ON HEPARIN DRIP HOPEFULLY TRANSITION TO [facility] OR [facility] TOMORROW IF ECHO IS STABLE AND CHEST PAIN DECREASES HAS DVT IN LEFT LE-MAY BE SOURCE OF PE RULE OUT HYPERCOAGULABLE STATE LABS DRAWN- CONSULT HEMATOLOGY CHRONIC CONTROL PILL- WILL STOP PAIN CONTROL NEEDED FOR PE AND CHEST PAIN SOB- CONTINUE HEPARIN DRIP CHEST PAIN, ECHO AND TREND TROPONINS GI PROPHYLAXIS WITH H2 LINDY Has fevers Start on Protocol with Rocephin and Zithromax Mucinex twice a day Duo nebs Await echo DW RN AND PT Discharge Planning Pending echo report Hopefully can be a novel anticoagulant Gm Monzon DO Jul 13, 2017 11:54
[2017-07-13] MEDS: SODIUM CHLOR 0.9% 1000 ML INJ 1,000 ML IV SCH ×2 (12:49→23:40)
[2017-07-13] MEDS: cefTRIAXone INJ 1,000 MG in SODIUM CHLORIDE 0.9% INJ 100 ML IV SCH (12:50)
[2017-07-13] MEDS: HEPARIN-D5W 25,000 U/250 ML 250 ML IV PRN (12:50)
[2017-07-13] MEDS: AZITHROMYCIN 250 MG TAB PO SCH (12:51)
[2017-07-13] MEDS: guaiFENesin E.R. 600 MG TAB PO SCH ×2 (12:51→20:05)
--- NOTE | 2017-07-13 17:18 | ECHRPT ---
Indication: Shortness of breath CONCLUSIONS The left ventricular systolic function is normal with an estimated ejection fraction in the range of 55-60%. Wall thickness is measured at the upper limits of normal. Normal left ventricular size. There is mild tricuspid valve regurgitation. The estimated pulmonary arterial pressure is 34.4 mmHg. BP: 122 / 68 HR: 80 Rhythm: Sinus MEASUREMENTS (Male / Female) Normal Values Technical Quality:Fair 2D ECHO LV Diastolic Diameter PLAX 4.3 cm 4.2 - 5.9 / 3.9 - 5.3 cm LV Systolic Diameter PLAX 3.2 cm IVS Diastolic Thickness 1.1 cm 0.6 - 1.0 / 0.6 - 0.9 cm LVPW Diastolic Thickness 1.1 cm 0.6 - 1.0 / 0.6 - 0.9 cm LV Relative Wall Thickness 0.5 LVOT Diameter 2.1 cm M-MODE Aortic Root Diameter MM 2.7 cm LA Systolic Diameter MM 3.4 cm LA Ao Ratio MM 1.3 AV Cusp Separation MM 2.1 cm DOPPLER AV Peak Velocity 124.0 cm/s AV Peak Gradient 6.2 mmHg LVOT Peak Velocity 114.0 cm/s LVOT Peak Gradient 5.2 mmHg AV Area Cont Eq pk 3.2 cm Mitral E Point Velocity 85.4 cm/s Mitral A Point Velocity 49.9 cm/s Mitral E to A Ratio 1.7 LV E' Lateral Velocity 13.8 cm/s Mitral E to LV E' Lateral Ratio 6.2 LV E' Septal Velocity 9.1 cm/s Mitral E to LV E' Septal Ratio 9.4 TR Peak Velocity 247.0 cm/s TR Peak Gradient 24.4 mmHg Right Atrial Pressure 10.0 mmHg Pulmonary Artery Systolic Pressu 34.4 mmHg Right Ventricular Systolic Press 34.4 mmHg PV Peak Velocity 113.0 cm/s PV Peak Gradient 5.1 mmHg FINDINGS LEFT VENTRICLE The left ventricular systolic function is normal with an estimated ejection fraction in the range of 55-60%. Wall thickness is measured at the upper limits of normal. Normal left ventricular size. RIGHT VENTRICLE Normal right ventricular size and systolic function. LEFT ATRIUM The left atrial size is normal. RIGHT ATRIUM The right atrial size is normal. ATRIAL SEPTUM Normal atrial septal thickness without atrial level shunting by limited color doppler interrogation. AORTA The aortic root and proximal ascending aorta are normal in size on limited imaging. MITRAL VALVE Structurally normal mitral valve. No mitral valve stenosis or regurgitation. AORTIC VALVE Trileaflet aortic valve. No aortic valve stenosis or regurgitation. TRICUSPID VALVE There is mild tricuspid valve regurgitation. The estimated pulmonary arterial pressure is 34.4 mmHg. PULMONARY VALVE Trivial pulmonary valve regurgitation. VESSELS The inferior vena cava is normal in size. PERICARDIUM No pericardial effusion. James Crowell MD (Electronically Signed) Final Date:13 July 2017 17:18
[2017-07-13 17:24] LABS: HEMOGLOBIN A1a 0.8 %; HEMOGLOBIN A1b 0.5 %; HEMOGLOBIN Ao 55.5 %; HEMOGLOBIN F 0.8 %; HEMOGLOBIN LA1C 1.2 %; HEMOGLOBIN P3 2.2 %
[2017-07-13] MEDS: CHLORHEXIDINE GLUCONATE 2 % 1 PACK (2 CLOTHS)(taper/protocol) TOPICAL SCH (19:31)
[2017-07-13] MEDS: SODIUM CHLORIDE 0.9% FLUSH 10 ML FLUSH IV FLUSH SCH (20:05)
[2017-07-14] VITALS (11 sets, daily range): BP systolic 109–134; BP diastolic 60–73; PULSE 84–119; RESP 16–39; TEMP 98.3–102.7; O2SAT 96–99
[2017-07-14] MEDS: ACETAMINOPHEN/HYDROcodone 325 MG/5 MG TAB PO PRN ×4 (00:45→19:50)
[2017-07-14] MEDS: HEPARIN-D5W 25,000 U/250 ML 250 ML IV PRN (06:18)
[2017-07-14] MEDS: guaiFENesin E.R. 600 MG TAB PO SCH ×2 (07:38→19:49)
[2017-07-14] MEDS: DOCUSATE SODIUM 50 MG/SENNA 8.6 MG TAB PO SCH ×2 (07:38→19:17)
[2017-07-14] MEDS: AZITHROMYCIN 250 MG TAB PO SCH (07:38)
[2017-07-14] MEDS: SODIUM CHLORIDE 0.9% FLUSH 10 ML FLUSH IV FLUSH SCH ×2 (11:20→19:50)
[2017-07-14] MEDS: cefTRIAXone INJ 1,000 MG in SODIUM CHLORIDE 0.9% INJ 100 ML IV SCH (11:20)
[2017-07-14] MEDS: SODIUM CHLOR 0.9% 1000 ML INJ 1,000 ML IV SCH (11:20)
--- NOTE | 2017-07-14 11:29 | HHI.PR ---
Subjective Remarks PATIENT IS A 31 YEAR OLD FEMALE WHO complains of right-sided chest pain and shortness of breath that began yesterday morning. She rates the pain 9 out of 10. Pain increases with inhaling, moving and walking. She describes the pain as a "pain". This is the first time she's had episode like this. She does not smoke. She denies any family history heart disease. She denies any personal history of DVT or PE. Patient is currently on oral contraceptive pills. 07-[address] RANGEL of hematology oncology Remains on heparin drip Had some fevers last night Continue on Zithromax and Rocephin for CAP Add Mucinex Neb treatments Discussed with patient and RN 07-[address] RANGEL START XARELTO 15MG PO BID TRANSFER OUT OF ICU IF STABLE DC TO HOME TOMORROW Objective Vitals Vital Signs Date Time Temp Pulse Resp B/P (MAP) Pulse Ox O2 Delivery O2 Flow Rate FiO2 07/14/17 10:00 109 07/14/17 08:00 99.1 98 34 124/67 (86) 97 07/14/17 08:00 98 07/14/17 06:00 100 07/14/17 04:04 97 Nasal Cannula 2.00 07/14/17 04:00 84 07/14/17 04:00 99.0 84 26 114/69 (84) 97 07/14/17 02:00 85 07/14/17 00:00 98.3 89 16 134/73 (93) 96 07/14/17 00:00 89 07/13/17 23:45 98 Nasal Cannula 2.00 07/13/17 22:00 93 07/13/17 20:19 98 Nasal Cannula 2.00 07/13/17 20:00 100.1 108 18 119/63 (81) 97 07/13/17 20:00 108 07/13/17 16:00 98.7 102 25 120/68 (85) 96 07/13/17 15:00 110 07/13/17 12:00 99.2 93 22 127/69 (88) 94 I/O 07/13/17 07/13/17 07/13/17 07/14/17 07/14/17 07/14/17 07:00 15:00 23:00 07:00 15:00 23:00 Intake Total 480 ml 2602 ml 240 ml Output Total 1100 ml 650 ml Balance -620 ml 2602 ml -410 ml Intake Oral 480 ml 960 ml 240 ml IV Total 1642 ml Output Urine Total 1100 ml 650 ml # Voids 5 Result Diagram: 07/13/17 0625 07/13/17 0625 Other Results Laboratory Tests Test 07/12/17 11:00 07/12/17 12:00 07/12/17 12:30 07/12/17 16:13 Nasal Screen MRSA (PCR) MRSA NOT DETECTED White Blood Count 13.2 TH/MM3 Red Blood Count 4.53 MIL/MM3 Hemoglobin 12.4 GM/DL Hematocrit 37.6 % Mean Corpuscular Volume 83.2 FL Mean Corpuscular Hemoglobin 27.4 PG Mean Corpuscular Hemoglobin Concent 33.0 % Red Cell Distribution Width 13.4 % Platelet Count 237 TH/MM3 Mean Platelet Volume 8.7 FL Neutrophils (%) (Auto) 82.1 % Lymphocytes (%) (Auto) 12.3 % Monocytes (%) (Auto) 5.0 % Eosinophils (%) (Auto) 0.3 % Basophils (%) (Auto) 0.3 % Neutrophils # (Auto) 10.8 TH/MM3 Lymphocytes # (Auto) 1.6 TH/MM3 Monocytes # (Auto) 0.7 TH/MM3 Eosinophils # (Auto) 0.0 TH/MM3 Basophils # (Auto) 0.0 TH/MM3 CBC Comment DIFF FINAL Differential Comment Prothrombin Time 11.4 SEC Prothromb Time International Ratio 1.0 RATIO Activated Partial Thromboplast Time 58.7 SEC 51.3 SEC Total Creatine Kinase 75 U/L Troponin I LESS THAN 0.02 NG/ML Phospholipid IgG Antibody 10.0 GPL Phospholipid IgM Antibody 22.3 MPL Test 07/13/17 06:25 White Blood Count 13.6 TH/MM3 Red Blood Count 4.21 MIL/MM3 Hemoglobin 11.7 GM/DL Hematocrit 35.4 % Mean Corpuscular Volume 84.0 FL Mean Corpuscular Hemoglobin 27.8 PG Mean Corpuscular Hemoglobin Concent 33.1 % Red Cell Distribution Width 13.6 % Platelet Count 216 TH/MM3 Mean Platelet Volume 8.7 FL Neutrophils (%) (Auto) 76.4 % Lymphocytes (%) (Auto) 13.5 % Monocytes (%) (Auto) 9.3 % Eosinophils (%) (Auto) 0.6 % Basophils (%) (Auto) 0.2 % Neutrophils # (Auto) 10.4 TH/MM3 Lymphocytes # (Auto) 1.8 TH/MM3 Monocytes # (Auto) 1.3 TH/MM3 Eosinophils # (Auto) 0.1 TH/MM3 Basophils # (Auto) 0.0 TH/MM3 CBC Comment DIFF FINAL Differential Comment Activated Partial Thromboplast Time 51.4 SEC Blood Urea Nitrogen 6 MG/DL Creatinine 0.85 MG/DL Random Glucose 94 MG/DL Total Protein 7.8 GM/DL Albumin 2.7 GM/DL Calcium Level 8.4 MG/DL Phosphorus Level 2.4 MG/DL Magnesium Level 2.2 MG/DL Alkaline Phosphatase 112 U/L Aspartate Amino Transf (AST/SGOT) 5 U/L Alanine Aminotransferase (ALT/SGPT) 13 U/L Total Bilirubin 0.5 MG/DL Sodium Level 139 MEQ/L Potassium Level 3.7 MEQ/L Chloride Level 105 MEQ/L Carbon Dioxide Level 27.6 MEQ/L Anion Gap 6 MEQ/L Estimat Glomerular Filtration Rate 94 ML/MIN Hemoglobin A1c 5.4 % Total Creatine Kinase 55 U/L Troponin I LESS THAN 0.02 NG/ML Free Thyroxine 1.63 NG/DL Thyroid Stimulating Hormone 3rd Gen 1.440 uIU/ML Imaging Last Impressions Lower Extremity Ultrasound 07/12/17 0000 Signed Impressions: Service Date/Time: Wednesday, July 12, 2017 10:57 - CONCLUSION: 1. Small volume thrombus involving the left popliteal vein which is nonocclusive. 2. No DVT involving the right leg. Torey Ortiz Jr., MD Objective Remarks GENERAL: Awake alert oriented 3-- talkative and cooperative SKIN: Warm and dry. HEAD: Atraumatic. Normocephalic. EYES: Pupils equal and round. No scleral icterus. No injection or drainage. Extraocular muscles intact ENT: No nasal bleeding or discharge. Mucous membranes pink and moist. Tongue is midline NECK: Trachea midline. No JVD. Neck is supple S1-S2 no S3 or S4 CARDIOVASCULAR: Regular rate and rhythm. RESPIRATORY: No accessory muscle use. Clear to auscultation. Breath sounds equal bilaterally. GASTROINTESTINAL: Abdomen soft, non-tender, nondistended. Hepatic and splenic margins not palpable. MUSCULOSKELETAL: Extremities without clubbing, cyanosis, or edema. No obvious deformities. NEUROLOGICAL: Awake and alert. No obvious cranial nerve deficits. Motor grossly within normal limits. Five out of 5 muscle strength in the arms and legs. Normal speech. PSYCHIATRIC: Appropriate mood and affect; insight and judgment normal. Procedures NONE Medications and IVs Current Medications Sodium Chloride 1,000 ml @ 75 mls/hr [id number] IV Last administered on 11:20; Start 07/12/17 at 08:17 Sodium Chloride (NS Flush) 2 ml UNSCH PRN IV FLUSH FLUSH AFTER USING IV ACCESS ; Start 07/12/17 at 08:30; Stop 07/12/17 at 10:07; Status DC Sodium Chloride (NS Flush) 2 ml BID IV FLUSH ; Start 07/12/17 at 09:00; Stop 07/12/17 at 10:07; Status DC Acetaminophen/ Hydrocodone Bitart ([place] 5-325 Mg) 1 tab Q4H PRN PO PAIN SCALE 1 TO 5 Last administered on 07/13/17 08:45; Start 07/12/17 at 08:30 Acetaminophen/ Hydrocodone Bitart ([place] 5-325 Mg) 2 tab Q4H PRN PO PAIN SCALE 6 TO 10 Last administered on 07/14/17 07:37; Start 07/12/17 at 08:30 Morphine Sulfate (Morphine Inj) 2 mg Q4H PRN IV PUSH BREAKTHROUGH PAIN; Start 07/12/17 at 08:30 Heparin Sodium (Porcine) (Heparin Inj) 5,000 units UNSCH PRN IV PUSH APTT LESS THAN 25; Start 07/12/17 at 14:30 Heparin Sodium (Porcine) (Heparin Inj) 2,500 units UNSCH PRN IV PUSH APTT 25 TO 39; Start 07/12/17 at 14:30 Heparin Sodium/ Dextrose 250 ml @ 0 mls/hr TITRATE PRN IV Coagulation Management; Start 07/12/17 at 08:30; Status UNV Sodium Chloride (NS Flush) 2 ml UNSCH PRN IV FLUSH FLUSH AFTER USING IV ACCESS ; Start 07/12/17 at 08:30; Stop 07/13/17 at 12:03; Status DC Sodium Chloride (NS Flush) 2 ml BID IV FLUSH Last administered on 07/12/17 09 :00; Start 07/12/17 at 09:00; Stop 07/13/17 at 12:03; Status DC Acetaminophen (Tylenol) 650 mg Q4H PRN PO TEMP > 100.4 Last administered on t 20:05; Start 07/12/17 at 08:30 Ondansetron HCl (Zofran Inj) 4 mg Q6H PRN IVP NAUSEA OR VOMITING; Start at 08:30 Prochlorperazine (Compazine Supp) 25 mg Q12H PRN RECTAL NAUSEA OR VOMITING; Start 07/12/17 at 08:30 Zolpidem Tartrate (Ambien) 5 mg HS PRN PO INSOMNIA; Start 07/12/17 at 08:30 Acetaminophen (Tylenol) 650 mg Q6H PRN PO PAIN SCALE 1 TO 2; Start 07/12/17 at 08:30; Stop 07/12/17 at 10:04; Status DC Morphine Sulfate (Morphine Inj) 2 mg Q3H PRN IV PUSH Pain 3-5; if unable to take PO; Start 07/12/17 at 08:30 Morphine Sulfate (Morphine Inj) 4 mg Q3H PRN IV PUSH Pain 6-10;if unable to take PO; Start 07/12/17 at 08:30 Naloxone HCl (Narcan Inj) 0.4 mg UNSCH PRN IV PUSH SEE LABEL COMMENTS; Start 07/12/17 at 08:30 Senna/Docusate Sodium (Megan-Colace) 1 tab BID PO ; Start 07/12/17 at 09:00 Magnesium Hydroxide (Milk Of Magnesia Liq) 30 ml Q12H PRN PO Mild constipation ; Start 07/12/17 at 08:30 Sennosides (Senokot) 17.2 mg Q12H PRN PO Moderate constipation; Start at 08:30 Bisacodyl (Dulcolax Supp) 10 mg DAILY PRN RECTAL SEVERE CONSITIPATION; Start 07/12/17 at 08:30 Lactulose (Lactulose Liq) 30 ml DAILY PRN PO SEVERE CONSITIPATION; Start 07/12 at 08:30 Heparin Sodium/ Dextrose 250 ml @ 16.38 mls/ hr UNSCH PRN IV COAGULATION MANAGEMENT; Start 07/12/17 at 11:00; Stop 07/12/17 at 11:00; Status DC Heparin Sodium/ Dextrose 250 ml @ 16.38 mls/ hr TITRATE PRN IV COAGULATION MANAGEMENT Last administered on 07/14/17 06:18; Start 07/12/17 at 11:00 Miscellaneous Information Patient in critical care unit? Ass... Q361D .XX Last administered on 07/12/17 14:15; Start 07/12/17 at 14:15 Chlorhexidine Gluconate (Chlorhexidine 2% Cloth) 3 pack DAILY@04 TOPICAL Last administered on 07/13/17 19:31; Start 07/13/17 at 04:00; Stop 07/17/17 at 04 :01 Chlorhexidine Gluconate (Chlorhexidine 2% Cloth) 3 pack UNSCH PRN TOPICAL HYGIENIC CARE; Start 07/12/17 at 14:15; Stop 07/17/17 at 14:07 Sodium Chloride (NS Flush) 2 ml UNSCH PRN IV FLUSH FLUSH AFTER USING IV ACCESS ; Start 07/13/17 at 11:15 Sodium Chloride (NS Flush) 2 ml BID IV FLUSH Last administered on 07/14/17 11 :20; Start 07/13/17 at 21:00 Ceftriaxone Sodium 1000 mg/ Sodium Chloride 100 ml @ 200 mls/hr Q24H IV Last administered on 07/14/17 11:20; Start 07/13/17 at 12:00 Azithromycin (Zithromax) 500 mg DAILY PO Last administered on 07/14/17 07:38 ; Start 07/13/17 at 11:15 Acetaminophen (Tylenol) 650 mg Q4H PRN PO TEMPERATURE > 101 F; Start 07/13/17 at 11:15 Albuterol/ Ipratropium (Duoneb Neb) 1 ampule Q4HR NEB PRN INH SHORTNESS OF BREATH; Start 07/13/17 at 11:15 Guaifenesin/ Dextromethorphan (Robitussin Dm 200-20 Mg/10 ml Liq) 10 ml Q4H PRN PO COUGH; Start 07/13/17 at 11:15 Guaifenesin (Mucinex Er) 600 mg BID PO Last administered on 07/14/17 07:38; Start 07/13/17 at 12:00 A/P Problem List: (1) Dyspnea ICD Code: R06.00 - Dyspnea, unspecified (2) SOB (shortness of breath) ICD Code: R06.02 - Shortness of breath (3) Chest pain ICD Code: R07.9 - Chest pain, unspecified (4) Pulmonary emboli ICD Code: I26.99 - Other pulmonary embolism without acute cor pulmonale (5) CAP (community acquired pneumonia) ICD Code: J18.9 - Pneumonia, unspecified organism Assessment and Plan MULTIPLE PULMONARY EMBOLI BL- CONTINUE ON HEPARIN DRIP HOPEFULLY TRANSITION TO XARELTO 15MG PO BID TODAY HAS DVT IN LEFT LE-MAY BE SOURCE OF PE RULE OUT HYPERCOAGULABLE STATE LABS DRAWN- CONSULT HEMATOLOGY CHRONIC CONTROL PILL- WILL STOP PAIN CONTROL NEEDED FOR PE AND CHEST PAIN SOB- CONTINUE HEPARIN DRIP CHEST PAIN, ECHO AND TREND TROPONINS GI PROPHYLAXIS WITH H2 LINDY Has fevers Start on CAP Protocol with Rocephin and Zithromax Mucinex twice a day Duo nebs MOVE OUT OF ICU AMBULATE TODAY IF STABLE HOME ON ZITHROMAX, MUCINEX, AND XARELTO 15MG BID TOMORROW 11-17 A[address] echo DW RN AND PT Discharge Planning STARTED ON XARELTO 15MG TODAY DC TO HOME TOMORROW IF STABLE Gm Monzon DO Jul 14, 2017 11:29
--- NOTE | 2017-07-14 12:33 | PD.ONC.PN ---
Subjective Subjective Remarks Tmax last night 100.1 Endorses chest pain with inspiration Shortness of breath worse with activity Objective Data Date Time Temp Pulse Resp B/P (MAP) Pulse Ox O2 Delivery O2 Flow Rate FiO2 07/14/17 10:00 109 07/14/17 08:00 99.1 98 34 124/67 (86) 97 07/14/17 08:00 98 07/14/17 06:00 100 07/14/17 04:04 97 Nasal Cannula 2.00 07/14/17 04:00 84 07/14/17 04:00 99.0 84 26 114/69 (84) 97 07/14/17 02:00 85 07/14/17 00:00 98.3 89 16 134/73 (93) 96 07/14/17 00:00 89 07/13/17 23:45 98 Nasal Cannula 2.00 07/13/17 22:00 93 07/13/17 20:19 98 Nasal Cannula 2.00 07/13/17 20:00 100.1 108 18 119/63 (81) 97 07/13/17 20:00 108 07/13/17 16:00 98.7 102 25 120/68 (85) 96 07/13/17 15:00 110 07/14/17 07/14/17 07/14/17 07:00 15:00 23:00 Intake Total 240 ml Output Total 650 ml Balance -410 ml Result Diagram: 07/13/1762407/13/1725 Administered Medications Medications (Trade) Dose Ordered Sig/Eric Route PRN Reason Start Time Stop Time Status Last Admin Dose Admin Sodium Chloride 1,000 ml @ 75 mls/hr [id number] IV 07/12/17 08:17 07/14/17 11:20 Acetaminophen/ Hydrocodone Bitart ([place] 5-325 Mg) 1 tab Q4H PRN PO PAIN SCALE 1 TO 5 07/12/17 08:30 07/13/17 08:45 Acetaminophen/ Hydrocodone Bitart ([place] 5-325 Mg) 2 tab Q4H PRN PO PAIN SCALE 6 TO 10 07/12/17 08:30 07/14/17 07:37 Acetaminophen (Tylenol) 650 mg Q4H PRN PO TEMP > 100.4 07/12/17 08:30 07/13/17 20:05 Miscellaneous Information Patient in critical care unit? Ass... Q361D .XX 07/12/17 14:15 07/12/17 14:15 Chlorhexidine Gluconate (Chlorhexidine 2% Cloth) 3 pack DAILY@04 TOPICAL 07/13/17 04:00 07/17/17 04:01 07/13/17 19:31 Sodium Chloride (NS Flush) 2 ml BID IV FLUSH 07/13/17 21:00 07/14/17 11:20 Ceftriaxone Sodium 1000 mg/ Sodium Chloride 100 ml @ 200 mls/hr Q24H IV 07/13/17 12:00 07/14/17 11:20 Azithromycin (Zithromax) 500 mg DAILY PO 07/13/17 11:15 07/14/17 07:38 Guaifenesin (Mucinex Er) 600 mg BID PO 07/13/17 12:00 07/14/17 07:38 Objective Remarks GENERAL: Young female in sitting up in bed watching TV in no acute distress SKIN: Warm and dry. HEAD: Normocephalic. EYES: No injection or drainage. NECK: Supple, trachea midline. CARDIOVASCULAR: Regular rate and rhythm without murmurs. RESPIRATORY: Clear anteriorly. On 2 L nasal cannula GASTROINTESTINAL: Abdomen soft, non-tender, nondistended. EXTREMITIES: No cyanosis, or edema. MUSCULOSKELETAL: Adequate muscle tone. NEUROLOGICAL: No obvious focal deficit. Awake, alert, and oriented x3. Assessment/Plan Assessment 1. Acute left lower extremity deep venous thrombosis with pulmonary embolism. She likely has a hypercoagulable state exacerbated with oral contraceptive pills. She presented with chest pain and CT angiogram showed a large pulmonary embolism in the right lower lobe, intralobar pulmonary artery with small pulmonary embolism in the left lower lobe pulmonary artery and also infiltrate in the right lower lobe which is likely due to the pulmonary embolism. Ultrasound showed a small nonocclusive clot in the left popliteal vein. She had two maternal aunts with history of blood clots, one triggered by a and one had a blood clot after a long flight. The patient started oral contraceptive pills six months ago and likely triggered the clots. Plan 1. We will transition to Xarelto today. Dosing will be 15 mg twice daily for 21 days and then 20 mg once daily. 2. Discussed with the patient that she will likely be on the anticoagulation for at least 6 months. 3. If she is found to have anything positive on the hypercoagulable workup then she will likely be on the anticoagulation for life long. 4. Encouraged her to follow-up with gynecology after discharged to discuss alternate contraception. 5. Xarelto ordered by primary Discussed with Dr Monzon Attending Statement The exam, history, and the medical decision-making described in the above note were completed with the assistance of the mid-level provider. I reviewed and agree with the findings presented. I attest that I had a [id number] encounter with the patient on the same day, and personally performed and documented my assessment and findings in the medical record. CO and SOB slightly better. Good O2 sat, hemodynamically stable. ECHO no right heart dysfunction. Transition to Xarelto. Discussed with . Tiffany Erwin Jul 14, 2017 12:33 Migel Alcocer MD Jul 14, 2017 13:54
[2017-07-14 12:38] LABS: AUTOMATED NEUTROPHIL # 9.6 TH/MM3 (1.8-7.7); BASOPHIL % 0.3 % (0.0-2.0); EOSINOPHIL # 0.1 TH/MM3 (0-0.4); EOSINOPHIL % 0.6 % (0.0-4.0); HEMATOCRIT 34.8 % (35.0-46.0); HEMO FLAGS DIFF FINAL; LYMPHOCYTE # 2.4 TH/MM3 (1.0-4.8); MEAN CELL VOLUME 83.6 FL (80.0-100.0); MEAN CORPUSCULAR HEMOGLOBIN 27.1 PG (27.0-34.0); MEAN CORPUSCULAR HGB CONC 32.4 % (32.0-36.0); NEUT % 73.1 % (16.0-70.0); PLATELET COUNT 218 TH/MM3 (150-450); RED BLOOD COUNT 4.16 MIL/MM3 (4.00-5.30); RED CELL DISTRIBUTION WIDTH 13.5 % (11.6-17.2); WHITE BLOOD COUNT 13.2 TH/MM3 (4.0-11.0)
[2017-07-14 12:44] LABS: APTT (PATIENT) 40.1 SEC (24.3-30.1)
[2017-07-14] MEDS: RIVAROXABAN 15 MG TAB PO SCH ×2 (12:48→19:49)
[2017-07-14 13:02] LABS: ANION GAP 6 MEQ/L (5-15); AST (GOT) 10 U/L (15-37); BICARBONATE 28.4 MEQ/L (21.0-32.0); BLOOD UREA NITROGEN 7 MG/DL (7-18); CHLORIDE 106 MEQ/L (98-107); GLOMERULAR FILTRATION RATE 101 ML/MIN (>89); MAGNESIUM 2.1 MG/DL (1.5-2.5); POTASSIUM 3.8 MEQ/L (3.5-5.1); SODIUM (NA) 140 MEQ/L (136-145)
[2017-07-14 13:07] LABS: ALKALINE PHOSPHATASE 104 U/L (45-117); ALT (GPT) 11 U/L (10-53); TOTAL BILIRUBIN ADULT 0.3 MG/DL (0.2-1.0)
[2017-07-14] MEDS: CHLORHEXIDINE GLUCONATE 2 % 1 PACK (2 CLOTHS)(taper/protocol) TOPICAL SCH (19:50)
[2017-07-15] VITALS: BP 121/61; PULSE 86; RESP 21; TEMP 99.2; O2SAT 96
[2017-07-15] MEDS: SODIUM CHLOR 0.9% 1000 ML INJ 1,000 ML IV SCH (00:45)
[2017-07-15] MEDS: ACETAMINOPHEN/HYDROcodone 325 MG/5 MG TAB PO PRN ×2 (00:45→07:37)
[2017-07-15 04:00] VITALS: BP 108/61; PULSE 82; RESP 23; TEMP 99.6; O2SAT 98
[2017-07-15 05:40] LABS: THROMBIN TIME FOR LA ND sec (13-19)
[2017-07-15 06:28] LABS: BASOPHIL % 0.3 % (0.0-2.0); EOSINOPHIL # 0.2 TH/MM3 (0-0.4); EOSINOPHIL % 1.6 % (0.0-4.0); HEMATOCRIT 31.5 % (35.0-46.0); HEMO FLAGS DIFF FINAL; LYMPH % 21.3 % (9.0-44.0); LYMPHOCYTE # 2.5 TH/MM3 (1.0-4.8); MEAN CELL VOLUME 84.4 FL (80.0-100.0); MEAN CORPUSCULAR HEMOGLOBIN 28.4 PG (27.0-34.0); MEAN CORPUSCULAR HGB CONC 33.7 % (32.0-36.0); MONO % 8.2 % (0.0-8.0); NEUT % 68.6 % (16.0-70.0); PLATELET COUNT 198 TH/MM3 (150-450); RED BLOOD COUNT 3.73 MIL/MM3 (4.00-5.30); RED CELL DISTRIBUTION WIDTH 13.2 % (11.6-17.2); WHITE BLOOD COUNT 11.6 TH/MM3 (4.0-11.0)
[2017-07-15 06:51] LABS: ANION GAP 4 MEQ/L (5-15); AST (GOT) 12 U/L (15-37); BICARBONATE 29.3 MEQ/L (21.0-32.0); BLOOD UREA NITROGEN 8 MG/DL (7-18); CHLORIDE 107 MEQ/L (98-107); GLOMERULAR FILTRATION RATE 91 ML/MIN (>89); POTASSIUM 3.8 MEQ/L (3.5-5.1); SODIUM (NA) 140 MEQ/L (136-145)
[2017-07-15 06:56] LABS: ALKALINE PHOSPHATASE 110 U/L (45-117); ALT (GPT) 12 U/L (10-53); TOTAL BILIRUBIN ADULT 0.4 MG/DL (0.2-1.0)
[2017-07-15] MEDS: RIVAROXABAN 15 MG TAB PO SCH (07:36)
[2017-07-15] MEDS: SODIUM CHLORIDE 0.9% FLUSH 10 ML FLUSH IV FLUSH SCH (07:37)
[2017-07-15] MEDS: guaiFENesin E.R. 600 MG TAB PO SCH (07:37)
[2017-07-15] MEDS: DOCUSATE SODIUM 50 MG/SENNA 8.6 MG TAB PO SCH (07:37)
[2017-07-15] MEDS: AZITHROMYCIN 250 MG TAB PO SCH (07:37)
[2017-07-15 08:00] VITALS: BP 114/63; PULSE 88; RESP 30; TEMP 99.3; O2SAT 97
[2017-07-15 09:18] VITALS: O2SAT 97
[2017-07-15] MEDS: cefTRIAXone INJ 1,000 MG in SODIUM CHLORIDE 0.9% INJ 100 ML IV SCH (11:20)
[2017-07-15 12:00] VITALS: BP 117/69; PULSE 86; RESP 26; TEMP 98.7; O2SAT 97
--- NOTE | 2017-07-15 12:14 | HHI.PR ---
Subjective Remarks PATIENT IS A 31 YEAR OLD FEMALE WHO complains of right-sided chest pain and shortness of breath that began yesterday morning. She rates the pain 9 out of 10. Pain increases with inhaling, moving and walking. She describes the pain as a "pain". This is the first time she's had episode like this. She does not smoke. She denies any family history heart disease. She denies any personal history of DVT or PE. Patient is currently on oral contraceptive pills. 07-[address] RANGEL of hematology oncology Remains on heparin drip Had some fevers last night Continue on Zithromax and Rocephin for CAP Add Mucinex Neb treatments Discussed with patient and RN 07-[address] RANGEL START XARELTO 15MG PO BID TRANSFER OUT OF ICU IF STABLE DC TO HOME TOMORROW 07-15 OFF OF OXYGEN- SATURATING OK SOME PAIN STILL WILL PLACE ON PO MEDS PO ANTIBIOTICS DC TO HOME TODAY DW RN AND PT AND CARDIOLOGY Objective Vitals Vital Signs Date Time Temp Pulse Resp B/P (MAP) Pulse Ox O2 Delivery O2 Flow Rate FiO2 07/15/17 09:18 97 Nasal Cannula 2.00 07/15/17 08:00 99.3 88 30 114/63 (80) 97 07/15/17 08:00 88 07/15/17 04:00 99.6 82 23 108/61 (77) 98 07/15/17 04:00 82 07/15/17 00:00 99.2 86 21 121/61 (81) 96 07/15/17 00:00 86 07/14/17 20:36 99 Nasal Cannula 2.00 07/14/17 20:00 99.3 100 34 109/60 (76) 97 07/14/17 20:00 100 07/14/17 16:00 102.7 119 39 120/73 (89) 98 07/14/17 16:00 119 I/O 07/14/17 07/14/17 07/14/17 07/15/17 07/15/17 07/15/17 07:00 15:00 23:00 07:00 15:00 23:00 Intake Total 240 ml 1150 ml 720 ml 1550 ml Output Total 650 ml 900 ml Balance -410 ml 1150 ml 720 ml 650 ml Intake Oral 240 ml 720 ml 550 ml IV Total 1150 ml 1000 ml Output Urine Total 650 ml 900 ml # Voids 3 Result Diagram: 07/15/17 0520 07/15/17 0520 Other Results Laboratory Tests Test 07/12/17 12:30 07/12/17 16:13 07/13/17 06:25 07/14/17 12:13 Prothrombin Time 11.4 SEC Prothromb Time International Ratio 1.0 RATIO Activated Partial Thromboplast Time 58.7 SEC 51.3 SEC 51.4 SEC 40.1 SEC Thrombin Time sec Lupus Anticoagulant Lupus Anticoagulant PTT Screen 90 seconds Dil Raghavendra Viper Venom Time Screen 47 seconds Dil Raghavendra Viper Venom Conf (Lupus NEGATIVE Dil Raghavendra Viper Venom Time Mix Hexagonal Phase Confirmation NEGATIVE Protein C Activity 98 % Protein S Activity 102 % Anti-Thrombin III Activity 113 Factor V Leiden Mutation Negative Factor V Leiden Interpretation . Factor V Leiden Reviewed By SEE BELOW Coagulation Factor VIII Activity 326 Total Creatine Kinase 75 U/L 55 U/L Troponin I LESS THAN 0.02 NG/ML LESS THAN 0.02 NG/ML Homocysteine (Cardiovascular) 7.3 umol/L Gltg-wxdw-4-Glycoprotein I IgG Ab <9 [facility] Pmgb-llpe-9-Glycoprotein I IgA Ab <9 CECILIA Pzyz-obeo-9-Glycoprotein I IgM Ab <9 [facility] Phospholipid IgG Antibody 10.0 GPL Phospholipid IgM Antibody 22.3 MPL White Blood Count 13.6 TH/MM3 13.2 TH/MM3 Red Blood Count 4.21 MIL/MM3 4.16 MIL/MM3 Hemoglobin 11.7 GM/DL 11.3 GM/DL Hematocrit 35.4 % 34.8 % Mean Corpuscular Volume 84.0 FL 83.6 FL Mean Corpuscular Hemoglobin 27.8 PG 27.1 PG Mean Corpuscular Hemoglobin Concent 33.1 % 32.4 % Red Cell Distribution Width 13.6 % 13.5 % Platelet Count 216 TH/MM3 218 TH/MM3 Mean Platelet Volume 8.7 FL 8.2 FL Neutrophils (%) (Auto) 76.4 % 73.1 % Lymphocytes (%) (Auto) 13.5 % 18.0 % Monocytes (%) (Auto) 9.3 % 8.0 % Eosinophils (%) (Auto) 0.6 % 0.6 % Basophils (%) (Auto) 0.2 % 0.3 % Neutrophils # (Auto) 10.4 TH/MM3 9.6 TH/MM3 Lymphocytes # (Auto) 1.8 TH/MM3 2.4 TH/MM3 Monocytes # (Auto) 1.3 TH/MM3 1.1 TH/MM3 Eosinophils # (Auto) 0.1 TH/MM3 0.1 TH/MM3 Basophils # (Auto) 0.0 TH/MM3 0.0 TH/MM3 CBC Comment DIFF FINAL DIFF FINAL Differential Comment Blood Urea Nitrogen 6 MG/DL 7 MG/DL Creatinine 0.85 MG/DL 0.80 MG/DL Random Glucose 94 MG/DL 99 MG/DL Total Protein 7.8 GM/DL 7.5 GM/DL Albumin 2.7 GM/DL 2.4 GM/DL Calcium Level 8.4 MG/DL 8.4 MG/DL Phosphorus Level 2.4 MG/DL 2.2 MG/DL Magnesium Level 2.2 MG/DL 2.1 MG/DL Alkaline Phosphatase 112 U/L 104 U/L Aspartate Amino Transf (AST/SGOT) 5 U/L 10 U/L Alanine Aminotransferase (ALT/SGPT) 13 U/L 11 U/L Total Bilirubin 0.5 MG/DL 0.3 MG/DL Sodium Level 139 MEQ/L 140 MEQ/L Potassium Level 3.7 MEQ/L 3.8 MEQ/L Chloride Level 105 MEQ/L 106 MEQ/L Carbon Dioxide Level 27.6 MEQ/L 28.4 MEQ/L Anion Gap 6 MEQ/L 6 MEQ/L Estimat Glomerular Filtration Rate 94 ML/MIN 101 ML/MIN Hemoglobin A1c 5.4 % Free Thyroxine 1.63 NG/DL Thyroid Stimulating Hormone 3rd Gen 1.440 uIU/ML Test 07/15/17 05:20 White Blood Count 11.6 TH/MM3 Red Blood Count 3.73 MIL/MM3 Hemoglobin 10.6 GM/DL Hematocrit 31.5 % Mean Corpuscular Volume 84.4 FL Mean Corpuscular Hemoglobin 28.4 PG Mean Corpuscular Hemoglobin Concent 33.7 % Red Cell Distribution Width 13.2 % Platelet Count 198 TH/MM3 Mean Platelet Volume 8.4 FL Neutrophils (%) (Auto) 68.6 % Lymphocytes (%) (Auto) 21.3 % Monocytes (%) (Auto) 8.2 % Eosinophils (%) (Auto) 1.6 % Basophils (%) (Auto) 0.3 % Neutrophils # (Auto) 8.0 TH/MM3 Lymphocytes # (Auto) 2.5 TH/MM3 Monocytes # (Auto) 1.0 TH/MM3 Eosinophils # (Auto) 0.2 TH/MM3 Basophils # (Auto) 0.0 TH/MM3 CBC Comment DIFF FINAL Differential Comment Blood Urea Nitrogen 8 MG/DL Creatinine 0.88 MG/DL Random Glucose 82 MG/DL Total Protein 7.1 GM/DL Albumin 2.3 GM/DL Calcium Level 8.1 MG/DL Phosphorus Level 2.4 MG/DL Magnesium Level 2.0 MG/DL Alkaline Phosphatase 110 U/L Aspartate Amino Transf (AST/SGOT) 12 U/L Alanine Aminotransferase (ALT/SGPT) 12 U/L Total Bilirubin 0.4 MG/DL Sodium Level 140 MEQ/L Potassium Level 3.8 MEQ/L Chloride Level 107 MEQ/L Carbon Dioxide Level 29.3 MEQ/L Anion Gap 4 MEQ/L Estimat Glomerular Filtration Rate 91 ML/MIN Imaging Last Impressions Lower Extremity Ultrasound 07/12/17 0000 Signed Impressions: Service Date/Time: Wednesday, July 12, 2017 10:57 - CONCLUSION: 1. Small volume thrombus involving the left popliteal vein which is nonocclusive. 2. No DVT involving the right leg. Torey Ortiz Jr., MD Objective Remarks GENERAL: Awake alert oriented 3-- talkative and cooperative SKIN: Warm and dry. HEAD: Atraumatic. Normocephalic. EYES: Pupils equal and round. No scleral icterus. No injection or drainage. Extraocular muscles intact ENT: No nasal bleeding or discharge. Mucous membranes pink and moist. Tongue is midline NECK: Trachea midline. No JVD. Neck is supple S1-S2 no S3 or S4 CARDIOVASCULAR: Regular rate and rhythm. RESPIRATORY: No accessory muscle use. Clear to auscultation. Breath sounds equal bilaterally. GASTROINTESTINAL: Abdomen soft, non-tender, nondistended. Hepatic and splenic margins not palpable. MUSCULOSKELETAL: Extremities without clubbing, cyanosis, or edema. No obvious deformities. NEUROLOGICAL: Awake and alert. No obvious cranial nerve deficits. Motor grossly within normal limits. Five out of 5 muscle strength in the arms and legs. Normal speech. PSYCHIATRIC: Appropriate mood and affect; insight and judgment normal. Procedures NONE Medications and IVs Current Medications Sodium Chloride 1,000 ml @ 75 mls/hr [id number] IV Last administered on t 00:45; Start 07/12/17 at 08:17 Sodium Chloride (NS Flush) 2 ml UNSCH PRN IV FLUSH FLUSH AFTER USING IV ACCESS ; Start 07/12/17 at 08:30; Stop 07/12/17 at 10:07; Status DC Sodium Chloride (NS Flush) 2 ml BID IV FLUSH ; Start 07/12/17 at 09:00; Stop 07/12/17 at 10:07; Status DC Acetaminophen/ Hydrocodone Bitart ([place] 5-325 Mg) 1 tab Q4H PRN PO PAIN SCALE 1 TO 5 Last administered on 07/15/17 00:45; Start 07/12/17 at 08:30 Acetaminophen/ Hydrocodone Bitart ([place] 5-325 Mg) 2 tab Q4H PRN PO PAIN SCALE 6 TO 10 Last administered on 07/15/17 07:37; Start 07/12/17 at 08:30 Morphine Sulfate (Morphine Inj) 2 mg Q4H PRN IV PUSH BREAKTHROUGH PAIN; Start 07/12/17 at 08:30 Heparin Sodium (Porcine) (Heparin Inj) 5,000 units UNSCH PRN IV PUSH APTT LESS THAN 25; Start 07/12/17 at 14:30; Stop 07/14/17 at 11:42; Status DC Heparin Sodium (Porcine) (Heparin Inj) 2,500 units UNSCH PRN IV PUSH APTT 25 TO 39; Start 07/12/17 at 14:30; Stop 07/14/17 at 11:42; Status DC Heparin Sodium/ Dextrose 250 ml @ 0 mls/hr TITRATE PRN IV Coagulation Management; Start 07/12/17 at 08:30; Status UNV Sodium Chloride (NS Flush) 2 ml UNSCH PRN IV FLUSH FLUSH AFTER USING IV ACCESS ; Start 07/12/17 at 08:30; Stop 07/13/17 at 12:03; Status DC Sodium Chloride (NS Flush) 2 ml BID IV FLUSH Last administered on 07/12/17 09 :00; Start 07/12/17 at 09:00; Stop 07/13/17 at 12:03; Status DC Acetaminophen (Tylenol) 650 mg Q4H PRN PO TEMP > 100.4 Last administered on 20:05; Start 07/12/17 at 08:30 Ondansetron HCl (Zofran Inj) 4 mg Q6H PRN IVP NAUSEA OR VOMITING; Start at 08:30 Prochlorperazine (Compazine Supp) 25 mg Q12H PRN RECTAL NAUSEA OR VOMITING; Start 07/12/17 at 08:30 Zolpidem Tartrate (Ambien) 5 mg HS PRN PO INSOMNIA; Start 07/12/17 at 08:30 Acetaminophen (Tylenol) 650 mg Q6H PRN PO PAIN SCALE 1 TO 2; Start 07/12/17 at 08:30; Stop 07/12/17 at 10:04; Status DC Morphine Sulfate (Morphine Inj) 2 mg Q3H PRN IV PUSH Pain 3-5; if unable to take PO; Start 07/12/17 at 08:30 Morphine Sulfate (Morphine Inj) 4 mg Q3H PRN IV PUSH Pain 6-10;if unable to take PO; Start 07/12/17 at 08:30 Naloxone HCl (Narcan Inj) 0.4 mg UNSCH PRN IV PUSH SEE LABEL COMMENTS; Start 07/12/17 at 08:30 Senna/Docusate Sodium (Megan-Colace) 1 tab BID PO ; Start 07/12/17 at 09:00 Magnesium Hydroxide (Milk Of Magnesia Liq) 30 ml Q12H PRN PO Mild constipation ; Start 07/12/17 at 08:30 Sennosides (Senokot) 17.2 mg Q12H PRN PO Moderate constipation; Start at 08:30 Bisacodyl (Dulcolax Supp) 10 mg DAILY PRN RECTAL SEVERE CONSITIPATION; Start 07/12/17 at 08:30 Lactulose (Lactulose Liq) 30 ml DAILY PRN PO SEVERE CONSITIPATION; Start 07/12 at 08:30 Heparin Sodium/ Dextrose 250 ml @ 16.38 mls/ hr UNSCH PRN IV COAGULATION MANAGEMENT; Start 07/12/17 at 11:00; Stop 07/12/17 at 11:00; Status DC Heparin Sodium/ Dextrose 250 ml @ 16.38 mls/ hr TITRATE PRN IV COAGULATION MANAGEMENT Last administered on 07/14/17t 06:18; Start 07/12/17 at 11:00; Stop 07/14/17 at 11:43; Status DC Miscellaneous Information Patient in critical care unit? Ass... Q361D .XX Last administered on 07/12/17 14:15; Start 07/12/17 at 14:15 Chlorhexidine Gluconate (Chlorhexidine 2% Cloth) 3 pack DAILY@04 TOPICAL Last administered on 07/14/17 19:50; Start 07/13/17 at 04:00; Stop 07/17/17 at 04 :01 Chlorhexidine Gluconate (Chlorhexidine 2% Cloth) 3 pack UNSCH PRN TOPICAL HYGIENIC CARE; Start 07/12/17 at 14:15; Stop 07/17/17 at 14:07 Sodium Chloride (NS Flush) 2 ml UNSCH PRN IV FLUSH FLUSH AFTER USING IV ACCESS ; Start 07/13/17 at 11:15 Sodium Chloride (NS Flush) 2 ml BID IV FLUSH Last administered on 07/15/17 07 :37; Start 07/13/17 at 21:00 Ceftriaxone Sodium 1000 mg/ Sodium Chloride 100 ml @ 200 mls/hr Q24H IV Last administered on 07/15/17 11:20; Start 07/13/17 at 12:00 Azithromycin (Zithromax) 500 mg DAILY PO Last administered on 07/15/17 07:37 ; Start 07/13/17 at 11:15 Acetaminophen (Tylenol) 650 mg Q4H PRN PO TEMPERATURE > 101 F; Start 07/13/17 at 11:15 Albuterol/ Ipratropium (Duoneb Neb) 1 ampule Q4HR NEB PRN INH SHORTNESS OF BREATH; Start 07/13/17 at 11:15 Guaifenesin/ Dextromethorphan (Robitussin Dm 200-20 Mg/10 ml Liq) 10 ml Q4H PRN PO COUGH; Start 07/13/17 at 11:15 Guaifenesin (Mucinex Er) 600 mg BID PO Last administered on 07/15/17 07:37; Start 07/13/17 at 12:00 Rivaroxaban (Xarelto) 15 mg BID PO Last administered on 07/15/17 07:36; Start 07/14/17 at 12:00 Urinary Catheter: No Vascular Central Line Catheter: No A/P Problem List: (1) Dyspnea ICD Code: R06.00 - Dyspnea, unspecified (2) SOB (shortness of breath) ICD Code: R06.02 - Shortness of breath (3) Chest pain ICD Code: R07.9 - Chest pain, unspecified (4) Pulmonary emboli ICD Code: I26.99 - Other pulmonary embolism without acute cor pulmonale (5) CAP (community acquired pneumonia) ICD Code: J18.9 - Pneumonia, unspecified organism Assessment and Plan MULTIPLE PULMONARY EMBOLI BL- XARELTO 15MG PO BID TODAY HAS DVT IN LEFT LE-MAY BE SOURCE OF PE RULE OUT HYPERCOAGULABLE STATE LABS DRAWN- CONSULT HEMATOLOGY CHRONIC CONTROL PILL- WILL STOP PAIN CONTROL NEEDED FOR PE AND CHEST PAIN SOB- CONTINUE HEPARIN DRIP CHEST PAIN, ECHO AND TREND TROPONINS GI PROPHYLAXIS WITH H2 LINDY Has fevers Start on CAP Protocol with Rocephin and Zithromax Mucinex twice a day Duo nebs MOVE OUT OF ICU AMBULATE TODAY IF STABLE HOME ON ZITHROMAX, MUCINEX, AND XARELTO 15MG BID TOMORROW 11-17 Await echo-STABLE DC TP HOME TODAY DW RN AND PT Discharge Planning STARTED ON XARELTO 15MG TODAY DC TO HOME TOMORROW IF STABLE Gm Monzon DO Jul 15, 2017 12:14
[2017-07-15] MEDS ORDERED: HYDR-3516 PO (12:19)
[2017-07-15] MEDS ORDERED: AMBI5TAB PO (12:19)
[2017-07-15] MEDS ORDERED: COLA100C5 PO (12:19)
[2017-07-15] MEDS ORDERED: AZIT250T3 PO (12:19)
[2017-07-15] MEDS ORDERED: guaiFENesin ER PO (12:19)
[2017-07-15] MEDS ORDERED: XARE15TA PO (12:19)
--- NOTE | 2017-07-15 12:21 | HHI.DS ---
Discharge Summary Admission Date Jul 12, 2017 at 09:53 Discharge Date: Jul 15, 2017 Admitting Diagnosis PULMONARY EMBOLI (1) Dyspnea ICD Code: R06.00 - Dyspnea, unspecified Diagnosis: Principal (2) SOB (shortness of breath) ICD Code: R06.02 - Shortness of breath Diagnosis: Principal (3) Chest pain ICD Code: R07.9 - Chest pain, unspecified Diagnosis: Secondary (4) Pulmonary emboli ICD Code: I26.99 - Other pulmonary embolism without acute cor pulmonale Diagnosis: Principal (5) CAP (community acquired pneumonia) ICD Code: J18.9 - Pneumonia, unspecified organism Diagnosis: Secondary Procedures NONE Brief History - From Admission PATIENT IS A 31 YEAR OLD FEMALE WHO complains of right-sided chest pain and shortness of breath that began yesterday morning. She rates the pain 9 out of 10. Pain increases with inhaling, moving and walking. She describes the pain as a "pain". This is the first time she's had episode like this. She does not smoke. She denies any family history heart disease. She denies any personal history of DVT or PE. Patient is currently on oral contraceptive pills. CBC/BMP: 07/15/17 0520 07/15/17 0520 Significant Findings Laboratory Tests Test 07/12/17 12:30 07/12/17 16:13 07/13/17 06:25 07/14/17 12:13 Activated Partial Thromboplast Time 58.7 SEC (24.3-30.1) 51.3 SEC (24.3-30.1) 51.4 SEC (24.3-30.1) 40.1 SEC (24.3-30.1) Lupus Anticoagulant PTT Screen 90 seconds (< OR = 40) Dil Raghavendra Viper Venom Time Screen 47 seconds (< OR = 45) Coagulation Factor VIII Activity 326 (50-180) Troponin I LESS THAN 0.02 NG/ML LESS THAN 0.02 NG/ML Phospholipid IgM Antibody 22.3 MPL White Blood Count 13.6 TH/MM3 (4.0-11.0) 13.2 TH/MM3 (4.0-11.0) Neutrophils (%) (Auto) 76.4 % (16.0-70.0) 73.1 % (16.0-70.0) Monocytes (%) (Auto) 9.3 % (0.0-8.0) Neutrophils # (Auto) 10.4 TH/MM3 (1.8-7.7) 9.6 TH/MM3 (1.8-7.7) Monocytes # (Auto) 1.3 TH/MM3 (0-0.9) 1.1 TH/MM3 (0-0.9) Blood Urea Nitrogen 6 MG/DL (7-18) Albumin 2.7 GM/DL (3.4-5.0) 2.4 GM/DL (3.4-5.0) Calcium Level 8.4 MG/DL (8.5-10.1) 8.4 MG/DL (8.5-10.1) Phosphorus Level 2.4 MG/DL (2.5-4.9) 2.2 MG/DL (2.5-4.9) Aspartate Amino Transf (AST/SGOT) 5 U/L (15-37) 10 U/L (15-37) Free Thyroxine 1.63 NG/DL (0.76-1.46) Hemoglobin 11.3 GM/DL (11.6-15.3) Hematocrit 34.8 % (35.0-46.0) Test 07/15/17 05:20 White Blood Count 11.6 TH/MM3 (4.0-11.0) Red Blood Count 3.73 MIL/MM3 (4.00-5.30) Hemoglobin 10.6 GM/DL (11.6-15.3) Hematocrit 31.5 % (35.0-46.0) Monocytes (%) (Auto) 8.2 % (0.0-8.0) Neutrophils # (Auto) 8.0 TH/MM3 (1.8-7.7) Monocytes # (Auto) 1.0 TH/MM3 (0-0.9) Albumin 2.3 GM/DL (3.4-5.0) Calcium Level 8.1 MG/DL (8.5-10.1) Phosphorus Level 2.4 MG/DL (2.5-4.9) Aspartate Amino Transf (AST/SGOT) 12 U/L (15-37) Anion Gap 4 MEQ/L (5-15) Imaging Last Impressions Lower Extremity Ultrasound 07/12/17 0000 Signed Impressions: Service Date/Time: Wednesday, July 12, 2017 10:57 - CONCLUSION: 1. Small volume thrombus involving the left popliteal vein which is nonocclusive. 2. No DVT involving the right leg. Torey Ortiz Jr., MD PE at Discharge GENERAL: Awake alert oriented 3-- talkative and cooperative SKIN: Warm and dry. HEAD: Atraumatic. Normocephalic. EYES: Pupils equal and round. No scleral icterus. No injection or drainage. Extraocular muscles intact ENT: No nasal bleeding or discharge. Mucous membranes pink and moist. Tongue is midline NECK: Trachea midline. No JVD. Neck is supple S1-S2 no S3 or S4 CARDIOVASCULAR: Regular rate and rhythm. RESPIRATORY: No accessory muscle use. Clear to auscultation. Breath sounds equal bilaterally. GASTROINTESTINAL: Abdomen soft, non-tender, nondistended. Hepatic and splenic margins not palpable. MUSCULOSKELETAL: Extremities without clubbing, cyanosis, or edema. No obvious deformities. NEUROLOGICAL: Awake and alert. No obvious cranial nerve deficits. Motor grossly within normal limits. Five out of 5 muscle strength in the arms and legs. Normal speech. PSYCHIATRIC: Appropriate mood and affect; insight and judgment normal. Hospital Course PATIENT IS A 31 YEAR OLD FEMALE WHO complains of right-sided chest pain and shortness of breath that began yesterday morning. She rates the pain 9 out of 10. Pain increases with inhaling, moving and walking. She describes the pain as a "pain". This is the first time she's had episode like this. She does not smoke. She denies any family history heart disease. She denies any personal history of DVT or PE. Patient is currently on oral contraceptive pills. 11-[address] RANGEL of hematology oncology Remains on heparin drip Had some fevers last night Continue on Zithromax and Rocephin for CAP Add Mucinex Neb treatments Discussed with patient and RN 11-16 NAIF RANGEL START XARELTO 15MG PO BID TRANSFER OUT OF ICU IF STABLE DC TO HOME TOMORROW 11-17 OFF OF OXYGEN- SATURATING OK SOME PAIN STILL WILL PLACE ON PO MEDS PO ANTIBIOTICS DC TO HOME TODAY NAIF RN AND PT AND CARDIOLOGY Pt Condition on Discharge: Good Discharge Disposition: Discharge Home Discharge Time: > 30 minutes Discharge Instructions DIET: Follow Instructions for: Heart Healthy Diet Speech Therapy-Diet Recommends: Regular Activities you can perform: Regular-No Restrictions Follow up Referrals: Oncology/Hematology - 1 Week with Migel Rangel MD PCP Follow-up - 1 Week New Medications: Docusate Sodium (Colace) 100 Mg Capsule 1 CAP PO TID PRN for CONSTIPATION, #90 CAP Azithromycin (Azithromycin) 250 Mg Tab 500 MG PO DAILY for Infection, #6 TAB Hydrocodone/Acetaminophen (Hydrocodone-Acetamin 5-325 mg) 5 Mg-325 Mg Tablet 2 TAB PO Q4H PRN for PAIN SCALE 6 TO 10, #60 TAB Rivaroxaban (Xarelto) 15 Mg Tab 15 MG PO BID for Blood Clot Prevention, #60 TAB Zolpidem (Ambien) 5 Mg Tab 5 MG PO HS PRN for INSOMNIA, #30 TAB [guaiFENesin ER] () 600 MG TABCR 600 MG PO BID for Infection, #60 TAB Discontinued Medications: Norgestimate-Ethinyl Estradiol (Trinessa) 0.18/0.215/0.25 mg-35 Mcg Tab 1 TAB PO DAILY for Control, #1 PACK 0 Refills Gm Monzon DO Jul 15, 2017 12:21
--- NOTE | 2017-07-15 12:25 | PD.ONC.PN ---
Subjective Subjective Remarks Tmax of 102.7 yesterday at 4PM. Was afebrile overnight. Eager to go home today. Continues to have mild pain with deep breath in chest. Objective Data Date Time Temp Pulse Resp B/P (MAP) Pulse Ox O2 Delivery O2 Flow Rate FiO2 07/15/17 12:00 86 07/15/17 12:00 98.7 86 26 117/69 (85) 97 07/15/17 09:18 97 Nasal Cannula 2.00 07/15/17 08:00 99.3 88 30 114/63 (80) 97 07/15/17 08:00 88 07/15/17 04:00 99.6 82 23 108/61 (77) 98 07/15/17 04:00 82 07/15/17 00:00 99.2 86 21 121/61 (81) 96 07/15/17 00:00 86 07/14/17 20:36 99 Nasal Cannula 2.00 07/14/17 20:00 99.3 100 34 109/60 (76) 97 07/14/17 20:00 100 07/14/17 16:00 102.7 119 39 120/73 (89) 98 07/14/17 16:00 119 07/15/17 07/15/17 07/15/17 07:00 15:00 23:00 Intake Total 1550 ml Output Total 900 ml Balance 650 ml Result Diagram: 07/15/1751907/15/17 0520 Laboratory Results Laboratory Tests Test 07/15/17 05:20 White Blood Count 11.6 TH/MM3 Red Blood Count 3.73 MIL/MM3 Hemoglobin 10.6 GM/DL Hematocrit 31.5 % Mean Corpuscular Volume 84.4 FL Mean Corpuscular Hemoglobin 28.4 PG Mean Corpuscular Hemoglobin Concent 33.7 % Red Cell Distribution Width 13.2 % Platelet Count 198 TH/MM3 Mean Platelet Volume 8.4 FL Neutrophils (%) (Auto) 68.6 % Lymphocytes (%) (Auto) 21.3 % Monocytes (%) (Auto) 8.2 % Eosinophils (%) (Auto) 1.6 % Basophils (%) (Auto) 0.3 % Neutrophils # (Auto) 8.0 TH/MM3 Lymphocytes # (Auto) 2.5 TH/MM3 Monocytes # (Auto) 1.0 TH/MM3 Eosinophils # (Auto) 0.2 TH/MM3 Basophils # (Auto) 0.0 TH/MM3 CBC Comment DIFF FINAL Differential Comment Blood Urea Nitrogen 8 MG/DL Creatinine 0.88 MG/DL Random Glucose 82 MG/DL Total Protein 7.1 GM/DL Albumin 2.3 GM/DL Calcium Level 8.1 MG/DL Phosphorus Level 2.4 MG/DL Magnesium Level 2.0 MG/DL Alkaline Phosphatase 110 U/L Aspartate Amino Transf (AST/SGOT) 12 U/L Alanine Aminotransferase (ALT/SGPT) 12 U/L Total Bilirubin 0.4 MG/DL Sodium Level 140 MEQ/L Potassium Level 3.8 MEQ/L Chloride Level 107 MEQ/L Carbon Dioxide Level 29.3 MEQ/L Anion Gap 4 MEQ/L Estimat Glomerular Filtration Rate 91 ML/MIN Administered Medications Medications (Trade) Dose Ordered Sig/Eric Route PRN Reason Start Time Stop Time Status Last Admin Dose Admin Sodium Chloride 1,000 ml @ 75 mls/hr [id number] IV 07/12/17 08:17 07/15/17 00:45 Acetaminophen/ Hydrocodone Bitart ([place] 5-325 Mg) 1 tab Q4H PRN PO PAIN SCALE 1 TO 5 07/12/17 08:30 07/15/17 00:45 Acetaminophen/ Hydrocodone Bitart ([place] 5-325 Mg) 2 tab Q4H PRN PO PAIN SCALE 6 TO 10 07/12/17 08:30 07/15/17 07:37 Acetaminophen (Tylenol) 650 mg Q4H PRN PO TEMP > 100.4 07/12/17 08:30 07/13/17 20:05 Miscellaneous Information Patient in critical care unit? Ass... Q361D .XX 07/12/17 14:15 07/12/17 14:15 Chlorhexidine Gluconate (Chlorhexidine 2% Cloth) 3 pack DAILY@04 TOPICAL 07/13/17 04:00 07/17/17 04:01 07/14/17 19:50 Sodium Chloride (NS Flush) 2 ml BID IV FLUSH 07/13/17 21:00 07/15/17 07:37 Ceftriaxone Sodium 1000 mg/ Sodium Chloride 100 ml @ 200 mls/hr Q24H IV 07/13/17 12:00 07/15/17 11:20 Azithromycin (Zithromax) 500 mg DAILY PO 07/13/17 11:15 07/15/17 07:37 Guaifenesin (Mucinex Er) 600 mg BID PO 07/13/17 12:00 07/15/17 07:37 Rivaroxaban (Xarelto) 15 mg BID PO 07/14/17 12:00 07/15/17 07:36 Objective Remarks GENERAL: Young woman, sitting up in chair next to bed in nad. SKIN: Warm and dry. HEAD: Normocephalic. EYES: no injection or drainage. NECK: Supple, trachea midline. CARDIOVASCULAR: Regular rate and rhythm RESPIRATORY: Breath sounds equal bilaterally. No accessory muscle use. GASTROINTESTINAL: Abdomen soft, non-tender, nondistended. EXTREMITIES: No cyanosis NEUROLOGICAL: No obvious focal deficit. Awake, alert, and oriented x3. Assessment/Plan Problem List: (1) Pulmonary emboli ICD Codes: I26.99 - Other pulmonary embolism without acute cor pulmonale Plan: on xarelto --likely has a hypercoagulable state exacerbated with oral contraceptive pills. --CT angiogram showed a large pulmonary embolism in the right lower lobe, intralobar pulmonary artery with small pulmonary embolism in the left lower lobe pulmonary artery and also infiltrate in the right lower lobe which is likely due to the pulmonary embolism. -- Ultrasound showed a small nonocclusive clot in the left popliteal vein. --had two maternal aunts with history of blood clots, one triggered by a and one had a blood clot after a long flight. --patient started oral contraceptive pills six months ago and likely triggered the clots. Assessment 31y/o female admitted with acute LLE DVT + PE. Plan 1. continue Xarelto 15 mg PO BID x21 days, then 20 mg once daily. 2. monitor CBC 3. once discharged, follow up with Tiffany in clinic. face sheet faxed to new patient referrals. Attending Statement The exam, history, and the medical decision-making described in the above note were completed with the assistance of the mid-level provider. I reviewed and agree with the findings presented. I attest that I had a [id number] encounter with the patient on the same day, and personally performed and documented my assessment and findings in the medical record. Late entry. Saw pt in the morning. CP/SOB slowly improving Tolerating Xarelto. F/u hematology clinic after d/c. Problem Qualifiers (1) Pulmonary emboli: Brigid Sotelo Jul 15, 2017 12:25 Migel Alcocer MD Jul 15, 2017 16:56
== END 2017-07-15 14:25 | disposition home or self-care (01) | DRG 175 ==
LOC: NEDDLT 09:43 → HIMN 09:53
PROVIDERS: ADMIT Hospitalist; ATTEND Hospitalist
DX: I26.99 Other pulmonary embolism without acute cor pulmonale (principal); J18.9 Pneumonia, unspecified organism; I82.432 Acute embolism and thrombosis of left popliteal vein; R07.89 Other chest pain; R00.0 Tachycardia, unspecified; T38.4X5A Adverse effect of oral contraceptives, initial encounter
CPT/HCPCS: 71010; 71275; 80048; 80053; 81240; 81241; 81291; 82550; 83036; 83090; 83735; 84100; 84439; 84443; 84484; 84702; 85025; 85240; 85300; 85303; 85306; 85307; 85379; 85597; 85598; 85610; 85613; 85730; 86146; 86147; 86148; 87641; 93005; 93306; 93970; 94150; 96374; 96375; J1170; J0696; J1644; J7030; Q9967